=== PATIENT | female | born 1960 | race Caucasian/White ===

== ENCOUNTER 2017-10-19 16:37 | Emergency (ER) | payer OTHER, MEDICAID ==
[2017-10-19 16:46] VITALS: BP 154/71; BMI 41.5
--- NOTE | 2017-10-19 17:41 | DR.GENAD ---
HPI - PCP Primary Care Physician: SPENSER WISEMAN - Complaint/Symptoms Chief Complaint Doctors Comments: I agree with complaint as written. I addressed patients complaint to her satisfaction. Patient is having no problems with eating. She is concerned that she does not have the appetite that she had prior to the surgery. Is what she is consuming enough; primarily water. Chief Complaint:: PT C/O HAVING MAJOR SURGERY ON FRIDAY IN [place] IN [place] , PETTY DEBORAH AND CORAL, PT STATES SHE HAD A BLADDER SLING, GASTRIC BYPASS AND HYS, HERNIA REPAIR.. Self Treatment fo Chief Complaint: PT C/O EATING AND THE FOOD NOT GOING DOWN SHE C/O NAUSEA AND WEAKNESS AND SHE THINKS SHE LIKE SHE IS DEHYDRATED .... PT HAS FC IN PLACE AND SHE STATES I HAVE NOT HAD A LOT OF URINE OUT. - Source History Provided: Patient - Mode of Arrival Mode of Arrival: Wheelchair - Timing Onset of Chief Complaint: 10/19/17 PMH - PMH Past Medical History: Yes Past Medical History: Diabetes, Dyslipidemia, Hypertension Past Surgical History: Yes Surgical History: Hysterectomy Past Surgical History Comment: HERNIA REPAIR. BLADDER SLING, GASTRIC BYPASS - Family History History of Family Medical Conditions: No - Social History Does patient currently use any type of tobacco product: No Have you used tobacco products in the last 12 months: No Type of Tobacco Use: None Does any household member use tobacco: No Alcohol Use: None Do you use any recreational Drugs:: No Lives With: Family Lives Where: Home - infectious screening In the last 2 months have you had wt loss of >10#?: YES Have you had fever, night sweats or hemotysis?: No Have you traveled outside the country in the last 6 months?: No Isolation: Standard ROS - Review of Systems Constitutional: No Symptoms Reported Eyes: No Symptoms Reported ENTM: No Symptoms Reported Respiratoy: No Symptoms Reported Cardiovascular: No Symptoms Reported Gastrointestinal/Abdominal: No Symptoms Reported Genitourinary: No Symptoms Reported Neurological: No Symptoms Reported Musculoskeletal: No Symptoms Reported Integumentary: No Symptoms Reported Hematologic/Lymphatic: No Symptoms Reported Endocrine: No Symptoms Reported Psychiatric: No Symptoms Reported All Other Systems: Reviewed and Negative PE - Vital Signs Vitals: Temperature 96.9 F Pulse Rate 63 Respiratory Rate 22 Blood Pressure 154/71 O2 Sat by Pulse Oximetry 94 - General Limitations: No Limitations General Appearance: Alert, In No Apparent Distress - Head Head Exam: Normal Inspection, Atraumatic - Eyes Eye exam: Normal Appearance, PERRL, EOMI - ENT ENT Exam: Normal Exam, Normal Oropharynx. negative: Mucous Membranes Dry External Ear Exam: Normal External Inspection TM/Canal Exam: Bilateral Normal Nose Exam: Normal Nose Exam Mouth Exam: Normal Inspection Throat Exam: Normal Inspection - Neck Neck Exam: Normal Inspection - Chest Chest Inspection: Normal Inspection - Respiratory Respiratory Exam: Normal Lung Sounds Bilat Respiratory Exam: Bilateral Clear to Auscultation - Cardiovascular Cardiovascular Exam: Regular Rate, Normal Rhythm - Abdominal Exam Abdominal Exam: Normal Inspection Abdominal Tenderness: negative: RUQ, RLQ, LUQ, LLQ, Epigastrium, Suprapubic, Diffuse, Mild, Moderate, Severe, Other - Extremities Extremities Exam: Normal Inspection, Normal Capillary Refill - Back Back Exam: Normal Inspection, Full ROM - Neurologic Neurological Exam: Alert, Oriented X3, CN II-XII Intact - Psychiatric Psychiatric Exam: Normal Affect - Skin Skin Exam: Dry - Diagnosis Discharge Problem: well hydrated - Discharge Plan Condition: Stable - Follow ups/Referrals Follow ups/Referrals: NFD,None [Primary Care Provider] - 3 days - Instructions
== END 2017-10-19 17:51 | disposition home or self-care (01) ==
LOC: ER 17:03
DX: R11.0 Nausea (principal); R53.1 Weakness
CPT/HCPCS: 99281; 99282

== ENCOUNTER 2020-12-11 13:44 | Inpatient (IN) ==
[2020-12-11 13:52] VITALS: BMI 34.2
--- NOTE | 2020-12-11 14:34 | DR.SOBA ---
HPI Time Seen Time Seen by Provider: 12/11/20 14:26 Primary Care Physician Primary Care Physician: KYLIE HPI Comment HPI Comment: PATIENT COMPLAINS OF A DRY COUGH, AND DYSPNEA AFTER EXPOSURE TO RELATIVE POSITIVE FOR COVID, DURATION OF 2 WEEKS.. DENIES FEVER, CHILLS OR ARTHRALGIAS. Complaints Chief Complaint Doctors Comments: ONSET OF SHORTNESS OF BREATH AND DRY COUGH, EXPOSED TO RELATIVE POSITIVE FOR COVID Chief Complaint:: SHORT OF BREATHE, MY COUSIN CAME IN YESTERDAY WITH COVID POSITIVE. I HAVE BEEN HAVING A DRY HACKING COUGH AND THINK IT IS SINUS PROBLEMS. SPOKE WITH SOMEONE AT THE HOSPITAL AND THEY TOLD ME TO COME AND BE SEEN. HAVE NOT TRIED TO GO TO OFFICE Self Treatment fo Chief Complaint: COUGHING STARTED TWO WEEKS AGO AND SHORT OF BREATHE STARTED THIS WEEK COVID-19 Coronavirus risk:travel/contact w/high risk person: Yes Has patient experienced Coronavirus symptoms: No Coronavirus symptoms experienced: Fever Reviewed Nurses Notes Reviewed: Yes Source History Provided: Patient Mode of Arrival Mode of Arrival: Ambulatory Timing Onset of Chief Complaint: 11/26/20 If Cough Cough: Nonproductive Other History Other History: HISTORY OF CONGESTIVE HEART FAILURE, HYPERTENSION, DM, PMH PMH Past Medical History: Yes Past Medical History: Diabetes and Hypertension Past Surgical History: Yes Surgical History: Cholecystectomy, Hysterectomy and Other Past Surgical History Comment: GASTRIC BYPASS HERNIA Family History History of Family Medical Conditions: No (PT WAS ADOPTIVE) Social History Does any household member use tobacco: No Alcohol Use: None Do you use any recreational Drugs:: No Lives With: Family Infectious screening In the last 2 months have you had wt loss of >10#?: NO Have you had fever, night sweats or hemotysis?: No Have you traveled outside the country in the last 6 months?: No Isolation: Droplet ROS Review of Systems Constitutional: No Symptoms Reported and See HPI Eyes: No Symptoms Reported ENTM: No Symptoms Reported Respiratoy: See HPI and Short of Breath Cardiovascular: No Symptoms Reported Gastrointestinal/Abdominal: No Symptoms Reported Genitourinary: No Symptoms Reported Neurological: No Symptoms Reported Musculoskeletal: No Symptoms Reported Integumentary: No Symptoms Reported Hematologic/Lymphatic: No Symptoms Reported Endocrine: No Symptoms Reported Psychiatric: No Symptoms Reported All Other Systems: Reviewed and Negative PE Vital Signs Vitals: Temperature 97.5 F Pulse Rate 64 Respiratory Rate 24 Blood Pressure 187/75 O2 Sat by Pulse Oximetry 93 General Limitations: No Limitations General Appearance: Alert and In No Apparent Distress Head Head Exam: Normal Inspection and Atraumatic Eyes Eye exam: Normal Appearance, PERRL and EOMI ENT ENT Exam: Normal Exam and Normal Oropharynx Neck Neck Exam: Normal Inspection, Full ROM and Trachea Midline Chest Chest Inspection: Normal Inspection and Symmetric Chest Wall Rise Respiratory Respiratory Exam: Normal Lung Sounds Bilat Respiratory Exam: Bilateral: Clear to Auscultation Cardiovascular Cardiovascular Exam: Regular Rate and Normal Rhythm Abdominal Exam Abdominal Exam: Normal Inspection, Normal Bowel Sounds and Soft Extremities Extremities Exam: Normal Inspection and Full ROM Back Back Exam: Normal Inspection Neurologic Neurological Exam: Alert and Oriented X3 Psychiatric Psychiatric Exam: Normal Affect and Normal Mood Skin Skin Exam: Warm, Dry, Intact and Normal Color MDM Differential Diagnosis Differential Diagnosis: COPD, Pneumonia and Pulmonary embolism Differential Diagnosis Comment:: COVID PNEUMONIA COURSE Treatment Treatment: IV NS AT 50ML/HR, AFTER 2 SETS BLOOD CULTURES, ROCEPHIN 1 GM IVPB, SOLUMEDROL 125MG IV Reevaluation 1st: Unchanged Consultation Call Returned: 18:33 Consultation Comments: DISCUSSED WITH DR COHEN AT 1833, FOR ADMIT ROR Labs Reviewed Laboratory Results Reviewed?: Yes Result Diagrams: 12/11/20 14:57 12/11/20 16:41 Laboratory: WBC 6.7 X10^3/uL (3.6-10.0) 12/11/20 14:57 RBC 3.73 X10^6/uL (3.5-5.4) 12/11/20 14:57 Hgb 9.3 g/dL (12.0-16.0) L 12/11/20 14:57 Hct 29.3 % (36.0-47.0) L 12/11/20 14:57 MCV 78.5 fL (80.0-100.0) L 12/11/20 14:57 MCH 24.9 pg (27.0-34.0) L 12/11/20 14:57 MCHC 31.7 g/dL (33.0-35.0) L 12/11/20 14:57 RDW 15.9 % (11.6-16.5) 12/11/20 14:57 Plt Count 412 X10^3/uL (150.0-450.0) 12/11/20 14:57 Plt Count Comment Adequate (ADEQUATE) 12/11/20 14:57 MPV 7.4 fL (7.4-11.0) 12/11/20 14:57 Neut % (Auto) 71.6 % (42.0-75.0) 12/11/20 14:57 Lymph % (Auto) 19.9 % (21.0-51.0) L 12/11/20 14:57 [place] % (Auto) 5.9 % (0.0-13.0) 12/11/20 14:57 Eos % (Auto) 2.0 % (0.9-2.9) 12/11/20 14:57 Baso % (Auto) 0.6 % (0.2-1.0) 12/11/20 14:57 Neut # (Auto) 4.8 x10^3/uL (2.2-4.8) 12/11/20 14:57 Lymph # (Auto) 1.3 X10^3/uL (1.3-2.9) 12/11/20 14:57 [place] # (Auto) 0.4 x10^3/uL (0.3-0.8) 12/11/20 14:57 Eos # (Auto) 0.1 x10^3/uL (0.0-0.2) 12/11/20 14:57 Baso # (Auto) 0.0 X10^3/uL (0.0-0.1) 12/11/20 14:57 Absolute Nucleated RBC 0.0 /100WBC 12/11/20 14:57 Total Counted 100 12/11/20 14:57 Neutrophils % (Manual) 72 % (39-76) 12/11/20 14:57 Band Neutrophils % 2 % (0-10) 12/11/20 14:57 Lymphocytes % (Manual) 25 % (13-43) 12/11/20 14:57 Monocytes % (Manual) 1 % (4-9) L 12/11/20 14:57 Plt Morphology Comment Normal (NORMAL) 12/11/20 14:57 RBC Morphology Abnormal (NORMAL) A 12/11/20 14:57 Hypochromasia Slight A 12/11/20 14:57 Microcytosis Slight A 12/11/20 14:57 D-Dimer 1.28 ug/ml (0.0-0.57) H* 12/11/20 14:57 Sodium 144 mmol/L (136-145) 12/11/20 16:41 Corrected Sodium 145 mmol/L (136-145) 12/11/20 16:41 Potassium 4.8 mmol/L (3.5-5.1) 12/11/20 16:41 Chloride 110 mmol/L (98-107) H 12/11/20 16:41 Carbon Dioxide 24.3 mmol/L (21-32) 12/11/20 16:41 BUN 15 mg/dL (7-18) 12/11/20 16:41 Creatinine 0.95 mg/dL (0.55-1.02) 12/11/20 16:41 Est GFR (MDRD) Af Amer > 60 (>60) 12/11/20 16:41 Est GFR (MDRD) Non-Af > 60 (>60) 12/11/20 16:41 Glucose 128 mg/dL (65-99) H 12/11/20 16:41 Calcium 7.7 mg/dL (8.5-10.1) L 12/11/20 16:41 Corrected Calcium 9.7 mg/dL (8.5-10.1) 12/11/20 14:57 Ferritin 100 ng/mL (8-252) 12/11/20 14:57 Total Bilirubin 1.00 mg/dL (0.2-1.0) 12/11/20 14:57 AST 44 Units/L (15-37) H 12/11/20 14:57 ALT 23 Units/L (12-78) 12/11/20 14:57 Alkaline Phosphatase 133 Units/L (46-116) H 12/11/20 14:57 Troponin I < 0.02 ng/mL (0-1.5) 12/11/20 14:57 C-Reactive Protein 18.40 mg/L (0-3.0) H 12/11/20 14:57 Total Protein 7.7 g/dL (6.4-8.2) 12/11/20 14:57 Albumin 2.8 g/dL (3.4-5.0) L 12/11/20 14:57 Globulin 4.9 g/dL (2.5-4.5) H 12/11/20 14:57 Albumin/Globulin Ratio 0.6 Ratio (1.1-2.1) L 12/11/20 14:57 SARS-CoV-2 (PCR) Positive (NEGATIVE) A 12/11/20 15:10 Influenza Type A (PCR) Negative (NEGATIVE) 12/11/20 15:10 Influenza Type B (PCR) Negative (NEGATIVE) 12/11/20 15:10 RSV (PCR) Negative (NEGATIVE) 12/11/20 15:10 XRAY XRAY Interpreted by: Radiologist (CTA CHEST INTRAVENOUS CONTRAST NO EVIDENCE PULM EMBOLISM, FOCAL CONSOLIDATION PERIPHERAL RIGHT UPPER LOBE, GROUND GLASS PERIPHERAL INFILTRATES LOWER LOBE) X-ray Results: PORTABLE CHEST XRAY C/W LEFT PERIHILAR SUBSEGMENTAL INFILTRATE, RIGHT SIDED PERIHILAR UPPER LOBE EKG Rate: 64 [place]: Normal Hypertrophy: LVH ST: Nonsp Opioid Opioid Risk Tool Age (Jluis box if 16-45): No History of Preadolescent Sexual Abuse: No Total: 0 Total Score Risk Category: Low Risk Copyright: Shyam CABRAL predicting aberrant behaviors Diagnosis Discharge Problem: Pneumonia due to COVID-19 virus
[2020-12-11] MEDS ORDERED: ROCEPHIN 1 GRAM IV PREMIX 1 G/50 ML IV.SOLN. IV ONE ×3 (14:39→20:49)
[2020-12-11] MEDS ORDERED: NS 1000 ML 1,000 ML ONE (14:42)
[2020-12-11] MEDS ORDERED: NS 1000 ML 1,000 ML IV SCH ×2 (15:00→21:00)
--- NOTE | 2020-12-11 15:04 | RAD ---
HISTORYCough, COVID-19 exposureSTUDYChest AP portableCOMPARISONNoneFINDINGSThe heart is enlarged. No definite congestive heart failure is noted. The lungs are well inflated. There is right upper lobe perihilar infiltrate present. This should be followed until complete resolution in order to exclude underlying neoplasm. If this does not resolve with antibiotic therapy or the patient does not have pneumonia clinically at this time than chest CT WITH CONTRAST should be obtained to exclude underlying parenchymal or right hilar neoplasm. There is some perihilar subsegmental atelectasis on the left. No pleural effusions are identified. Bony thorax is unremarkable.IMPRESSIONRight-sided perihilar upper lobe infiltrate which should be followed until complete resolution. See recommendation as abovePerihilar subsegmental atelectasis on the leftCardiomegaly without congestive heart failureElectronically signed by: SALEEM BEYER (Dec 11, 2020 15:02:05)
[2020-12-11 15:27] LABS: HEMOGLOBIN 9.3 g/dL (12.0-16.0); MEAN PLATELET VOLUME 7.4 fL (7.4-11.0)
[2020-12-11 15:28] LABS: EOSINOPHILS # (AUTO) 0.1 x10^3/uL (0.0-0.2); LYMPHOCYTES # (AUTO) 1.3 X10^3/uL (1.3-2.9); MONOCYTES # (AUTO) 0.4 x10^3/uL (0.3-0.8); NEUTROPHILS # (AUTO) 4.8 x10^3/uL (2.2-4.8)
[2020-12-11 15:37] LABS: BASOPHILS % (AUTO) 0.6 % (0.2-1.0); HEMATOCRIT 29.3 % (36.0-47.0); LYMPHOCYTES % (AUTO) 19.9 % (21.0-51.0); MEAN CORPUSCULAR HEMOGLOBIN 24.9 pg (27.0-34.0); MEAN CORPUSCULAR HGB CONC 31.7 g/dL (33.0-35.0); MEAN CORPUSCULAR VOLUME 78.5 fL (80.0-100.0); MONOCYTES % (AUTO) 5.9 % (0.0-13.0); NEUTROPHILS % (AUTO) 71.6 % (42.0-75.0); PLATELET COUNT 412 X10^3/uL (150.0-450.0); RED BLOOD COUNT 3.73 X10^6/uL (3.5-5.4); RED CELL DISTRIBUTION WIDTH 15.9 % (11.6-16.5); WHITE BLOOD COUNT 6.7 X10^3/uL (3.6-10.0)
[2020-12-11 15:42] LABS: ALANINE AMINOTRANSFERASE 23 Units/L (12-78); ALBUMIN 2.8 g/dL (3.4-5.0); ALKALINE PHOSPHATASE 133 Units/L (46-116); ASPARTATE AMINO TRANSFERASE 44 Units/L (15-37); BLOOD UREA NITROGEN 17 mg/dL (7-18); CALCIUM 8.7 mg/dL (8.5-10.1); CARBON DIOXIDE 24.6 mmol/L (21-32); CHLORIDE 107 mmol/L (98-107); COR CA(FOR HYPOALB) 9.7 mg/dL (8.5-10.1); COR NA(FOR HYPERGLY) 143 mmol/L (136-145); CREATININE 0.99 mg/dL (0.55-1.02); SODIUM 142 mmol/L (136-145); TOTAL PROTEIN 7.7 g/dL (6.4-8.2); TROPONIN I < 0.02 ng/mL (0-1.5); eGFR NON BLACK RACES > 60 (>60)
[2020-12-11] MEDS ORDERED: LEVSIN/MAALOX/LIDOC VISC PO ONE (15:43)
[2020-12-11] MEDS ORDERED: PROTONIX INJ 40 MG VIAL IVP ONE (15:43)
[2020-12-11 16:12] LABS: BAND NEUTROPHILS % 2 % (0-10)
[2020-12-11 16:13] LABS: HYPOCHROMASIA SLIGHT; MICROCYTOSIS SLIGHT; PLATELET MORPHOLOGY COMMENT NORMAL (NORMAL)
[2020-12-11] MEDS ORDERED: LEVSIN/MAALOX/LIDOC VISC ONE (16:38)
[2020-12-11] MEDS ORDERED: SOLU-Medrol 125 MG VIAL IVP ONE (16:38)
[2020-12-11] MEDS ORDERED: PROTONIX INJ 40 MG VIAL ONE (16:38)
[2020-12-11 16:59] LABS: BLOOD UREA NITROGEN 15 mg/dL (7-18); CALCIUM 7.7 mg/dL (8.5-10.1); CARBON DIOXIDE 24.3 mmol/L (21-32); CHLORIDE 110 mmol/L (98-107); COR NA(FOR HYPERGLY) 145 mmol/L (136-145); CREATININE 0.95 mg/dL (0.55-1.02); SODIUM 144 mmol/L (136-145); eGFR NON BLACK RACES > 60 (>60)
[2020-12-11] MEDS ORDERED: SOLU-Medrol 125 MG VIAL ONE ×2 (17:02→20:49)
--- NOTE | 2020-12-11 17:23 | CT ---
CT angiogram chest with contrastIndication: Cough. History COVID-19 exposureTECHNIQUEHelical images through the chest after IV contrast. Coronal and sagittal reformats provided. MIP images provided.COMPARISONNo recent prior cross-sectional imaging. Shoulder radiograph in October 14 reviewedFINDINGSLimited images through the upper abdomen demonstrate postsurgical change in the stomach. Trace perihepatic ascites noted review of bone windows demonstrate no destructive osseous lesion. Comminuted left shoulder fracture noted, intra-articular, involving the articular surface of the humerus, and extending into the humeral neck. This is subacute, with callus formation noted.Chest: Aortic arch and branch vessels show few calcifications. Heart size enlarged. There is mitral valve calcifications and scattered coronary artery calcifications. Pulmonary artery bolus timing is slightly suboptimal with motion artifact limiting sensitivity. Within these limitations, there is no large central or segmental pulmonary artery filling defect identified.There is no pneumothorax. There is mosaic attenuation with increased interstitial markings and more focal appearing consolidation in the right upper lobe posteriorly abutting the minor fissure on axial images 72-82. A few peripheral ground-glass opacities in the right lower lung and left lower lobes are noted, with interlobular septal thickening noted as well.Bilateral small to moderate effusions seen, largest on the right.IMPRESSION1. No large central pulmonary embolus, with motion artifact and bolus timing limiting distal vessel sensitivity somewhat.2. Cardiomegaly, bilateral effusions and increased interstitial markings, concerning for cardiac dysfunction/CHF. Correlate clinically.3. More focal consolidation in the periphery of the right upper lobe could reflect bacterial pneumonia.4. More patchy ground-glass opacities in the periphery of the lower lobes are nonspecific, but viral pneumonitis from COVID-19 infection is not excluded.Electronically signed by: JONATHAN CAMPBELL (Dec 11, 2020 17:22:12)
[2020-12-11] MEDS ORDERED: ZOFRAN INJ 4 MG VIAL IVP PRN (20:18)
[2020-12-11] MEDS ORDERED: ZITHROMAX INJ 500 MG VIAL 500 MG in NS 250 ML IV 250 ML IV SCH (20:18)
[2020-12-11] MEDS ORDERED: TYLENOL 325 MG TAB PO PRN (20:18)
[2020-12-11] MEDS: ROCEPHIN 1 GRAM IV PREMIX 1 G/50 ML IV.SOLN. IV SCH ×2 (20:55→20:56)
[2020-12-11] MEDS: SOLU-Medrol 125 MG VIAL IVP SCH (21:02)
[2020-12-11] MEDS ORDERED: ZITHROMAX INJ 500 MG VIAL IV ONE (21:11)
[2020-12-11] MEDS ORDERED: NS 250 ML IV 250 ML IV ONE (21:11)
[2020-12-11] MEDS ORDERED: ROCEPHIN 1 GRAM IV PREMIX 1 G/50 ML IV.SOLN. IV SCH (22:00)
[2020-12-11] MEDS ORDERED: APRESOLINE INJ 20 MG VIAL IVP ONE (23:15)
[2020-12-12] MEDS: SOLU-Medrol 125 MG VIAL IVP SCH ×3 (05:46→21:01)
[2020-12-12] MEDS ORDERED: REMDESIVIR 200 MG in NS 250 ML IV 250 ML IV NR (07:51)
[2020-12-12] MEDS ORDERED: ULTRAM PO PRN (07:53)
[2020-12-12] MEDS ORDERED: ZESTRIL TAB 5 MG PO SCH (09:00)
[2020-12-12] MEDS ORDERED: PROTONIX TAB 40 MG PO ONE (09:27)
[2020-12-12] MEDS ORDERED: VITAMIN D3 125 mcg (5,000 UNITS) ONE (09:28)
[2020-12-12] MEDS ORDERED: VITAMIN C ONE (09:28)
[2020-12-12] MEDS ORDERED: ZESTRIL TAB 5 MG ONE (09:28)
[2020-12-12] MEDS ORDERED: LOVENOX INJ 30 MG SYR SC ONE (09:28)
[2020-12-12] MEDS ORDERED: LASIX ONE (09:28)
[2020-12-12] MEDS ORDERED: NS 250 ML IV 250 ML IV ONE (09:28)
[2020-12-12] MEDS ORDERED: NEURONTIN TAB 600 MG ONE (09:28)
[2020-12-12] MEDS ORDERED: REMDESIVIR IV ONE (09:28)
[2020-12-12] MEDS: NEURONTIN TAB 600 MG PO SCH ×3 (09:30→21:01)
[2020-12-12] MEDS: PROTONIX TAB 40 MG PO SCH (09:31)
[2020-12-12] MEDS: LOVENOX INJ 30 MG SYR SC SCH ×2 (09:31→20:22)
[2020-12-12] MEDS: VITAMIN D3 125 mcg (5,000 UNITS) PO SCH (09:31)
[2020-12-12] MEDS: LASIX PO SCH (09:31)
[2020-12-12] MEDS: VITAMIN C PO SCH (09:31)
[2020-12-12] MEDS: DUONEB 0.5 MG/3 MG (3 mL) NEB SCH ×4 (09:51→20:15)
--- NOTE | 2020-12-12 10:37 | DR.H&P ---
H&P History & Physical for Day of: H&P Date: 12/12/20 Chief Complaint Chief Complaint: cough, dyspnea Allergies Allergies Allergy/AdvReac Type Severity Reaction Status Date / Time No Known Drug Allergies Allergy Verified 12/11/20 13:52 History of Present Illness History of Present Illness: Ms. Diaz is a 60 y/o female with a PMH of Type 2 DM, HTN, HLD, chronic back pain presented with worsening dyspnea and cough. She states she has been gradually worsening for the past week. She states yesterday she felt like her breathing was worse so she came to the ED. She reports feeling tired. Denies GI Sx. Her appetite has been normal. Her family member who lives a few houses away from her was recently diagnosed with COVID and she had been exposed. Denies fever or chills. She is currently on 2L NC with sats > 95%. She reports worsening dyspnea on exertion. Labs: WBC 6.7 Hgb 9.3 D-dimer elevated. Troponin (-). Elevated CRP COVID-19 positive, Flu and RSV negative CTA: negative for PE, bilateral pleural effusions concerning for CHF, ground glass opacities suggestive of COVID-19 pneumonia Patient was started on IV Rocephin/Azithromycin and solumedrol. Plan: Will start Remdesivir. Continue IV Rocephin/Azithromycin. Continue Solumedrol. Continue duonebs prn. Will get an ECHO to evaluate LV function. DC IVF. Follow cultures. Wean O2 as tolerated. Start vitamin support. Lovenox BID for DVT ppx. Resume home medications. Monitor AM labs/imaging. Past Medical History Past Medical History: CHF, Diabetes, Dyslipidemia and Hypertension Past Surgical History Surgical History: Cholecystectomy and Hysterectomy Social History Does patient currently use any type of tobacco product: No Have you used tobacco products in the last 12 months: No Type of Tobacco Use: None Does any household member use tobacco: No Alcohol Use: None Drug Use: None Prescription drug monitoring program results: PDMP reviewed and no concerns identified Medications Home Medications: No Known Drug Allergies Allergy (Verified 12/11/20 13:52) CONTINUE taking the following medications gabapentin mg PO 12/11/20 [History] lisinopril 5 mg PO DAILY 12/11/20 [History] Labs Result Diagrams: 12/11/20 14:57 12/11/20 16:41 Labs: Laboratory WBC 6.7 X10^3/uL (3.6-10.0) 12/11/20 14:57 RBC 3.73 X10^6/uL (3.5-5.4) 12/11/20 14:57 Hgb 9.3 g/dL (12.0-16.0) L 12/11/20 14:57 Hct 29.3 % (36.0-47.0) L 12/11/20 14:57 MCV 78.5 fL (80.0-100.0) L 12/11/20 14:57 MCH 24.9 pg (27.0-34.0) L 12/11/20 14:57 MCHC 31.7 g/dL (33.0-35.0) L 12/11/20 14:57 RDW 15.9 % (11.6-16.5) 12/11/20 14:57 Plt Count 412 X10^3/uL (150.0-450.0) 12/11/20 14:57 Plt Count Comment Adequate (ADEQUATE) 12/11/20 14:57 MPV 7.4 fL (7.4-11.0) 12/11/20 14:57 Neut % (Auto) 71.6 % (42.0-75.0) 12/11/20 14:57 Lymph % (Auto) 19.9 % (21.0-51.0) L 12/11/20 14:57 [place] % (Auto) 5.9 % (0.0-13.0) 12/11/20 14:57 Eos % (Auto) 2.0 % (0.9-2.9) 12/11/20 14:57 Baso % (Auto) 0.6 % (0.2-1.0) 12/11/20 14:57 Neut # (Auto) 4.8 x10^3/uL (2.2-4.8) 12/11/20 14:57 Lymph # (Auto) 1.3 X10^3/uL (1.3-2.9) 12/11/20 14:57 [place] # (Auto) 0.4 x10^3/uL (0.3-0.8) 12/11/20 14:57 Eos # (Auto) 0.1 x10^3/uL (0.0-0.2) 12/11/20 14:57 Baso # (Auto) 0.0 X10^3/uL (0.0-0.1) 12/11/20 14:57 Absolute Nucleated RBC 0.0 /100WBC 12/11/20 14:57 Total Counted 100 12/11/20 14:57 Neutrophils % (Manual) 72 % (39-76) 12/11/20 14:57 Band Neutrophils % 2 % (0-10) 12/11/20 14:57 Lymphocytes % (Manual) 25 % (13-43) 12/11/20 14:57 Monocytes % (Manual) 1 % (4-9) L 12/11/20 14:57 Plt Morphology Comment Normal (NORMAL) 12/11/20 14:57 RBC Morphology Abnormal (NORMAL) A 12/11/20 14:57 Hypochromasia Slight A 12/11/20 14:57 Microcytosis Slight A 12/11/20 14:57 D-Dimer 1.28 ug/ml (0.0-0.57) H* 12/11/20 14:57 Sodium 144 mmol/L (136-145) 12/11/20 16:41 Corrected Sodium 145 mmol/L (136-145) 12/11/20 16:41 Potassium 4.8 mmol/L (3.5-5.1) 12/11/20 16:41 Chloride 110 mmol/L (98-107) H 12/11/20 16:41 Carbon Dioxide 24.3 mmol/L (21-32) 12/11/20 16:41 BUN 15 mg/dL (7-18) 12/11/20 16:41 Creatinine 0.95 mg/dL (0.55-1.02) 12/11/20 16:41 Est GFR (MDRD) Af Amer > 60 (>60) 12/11/20 16:41 Est GFR (MDRD) Non-Af > 60 (>60) 12/11/20 16:41 Glucose 128 mg/dL (65-99) H 12/11/20 16:41 Calcium 7.7 mg/dL (8.5-10.1) L 12/11/20 16:41 Corrected Calcium 9.7 mg/dL (8.5-10.1) 12/11/20 14:57 Ferritin 100 ng/mL (8-252) 12/11/20 14:57 Total Bilirubin 1.00 mg/dL (0.2-1.0) 12/11/20 14:57 AST 44 Units/L (15-37) H 12/11/20 14:57 ALT 23 Units/L (12-78) 12/11/20 14:57 Alkaline Phosphatase 133 Units/L (46-116) H 12/11/20 14:57 Troponin I < 0.02 ng/mL (0-1.5) 12/11/20 14:57 C-Reactive Protein 18.40 mg/L (0-3.0) H 12/11/20 14:57 Total Protein 7.7 g/dL (6.4-8.2) 12/11/20 14:57 Albumin 2.8 g/dL (3.4-5.0) L 12/11/20 14:57 Globulin 4.9 g/dL (2.5-4.5) H 12/11/20 14:57 Albumin/Globulin Ratio 0.6 Ratio (1.1-2.1) L 12/11/20 14:57 SARS-CoV-2 (PCR) Positive (NEGATIVE) A 12/11/20 15:10 Influenza Type A (PCR) Negative (NEGATIVE) 12/11/20 15:10 Influenza Type B (PCR) Negative (NEGATIVE) 12/11/20 15:10 RSV (PCR) Negative (NEGATIVE) 12/11/20 15:10 Review of Systems Constitutional: Weakness and Malaise Eyes: No Symptoms Reported ENT: No Symptoms Reported Respiratory: Cough, Shortness of Breath and SOB with Excertion Cardiovascular: No Symptoms Reported Gastrointestinal: No Symptoms Reported Genitourinary: No Symptoms Reported Musculoskeletal: Back Pain Skin: No Symptoms Reported Neurological: No Symptoms Reported Physical Exam Vital Signs: Temperature 98 F Pulse Rate 63 Respiratory Rate 22 Blood Pressure 172/80 O2 Sat by Pulse Oximetry 96 Oriented: Normal Eyes: Normal Ear: Normal Nose: Normal Throat: Normal Respiratory: Diminished Throughout Cardiovascular: Normal Auscultation: Bowel Sounds: Normal Palpation: Normal Tenderness: Normal Skin: Normal Musculoskeletal: Normal Psychiatric: Normal Mood Description: Calm and Appropriate Affect: Normal Speech Pattern: Clear and Appropriate Assessment/Plan (1) Acute respiratory failure with hypoxia: Status: Acute (2) Pneumonia due to COVID-19 virus: Status: Acute (3) Bilateral pleural effusion: Status: Acute (4) HTN (hypertension): Qualifiers: Hypertension type: essential hypertension Qualified Code(s): I10 - Essential (primary) hypertension Status: Acute (5) DDD (degenerative disc disease): Qualifiers: Spinal region: lumbosacral Qualified Code(s): M51.37 - Other intervertebral disc degeneration, lumbosacral region Status: Acute (6) Diabetes: Qualifiers: Diabetes mellitus type: type 2 Diabetes mellitus intermediate designer insulin use: without intermediate designer use Diabetes mellitus complication status: with hyperglycemia Qualified Code(s): E11.65 - Type 2 diabetes mellitus with hyperglycemia Status: Acute (7) Hyperkalemia: Status: Acute Review H&P Reviewed: Yes Patient was examined?: Yes
[2020-12-12] MEDS: ROCEPHIN 1 GRAM IV PREMIX 1 G/50 ML IV.SOLN. IV SCH (14:50)
[2020-12-12] MEDS: GLUCOTROL PO SCH ×2 (17:13→17:16)
[2020-12-12] MEDS: HumuLIN R SC PRN ×2 (17:16→20:44)
[2020-12-12] MEDS ORDERED: NS 1000 ML 1,000 ML ONE (20:08)
[2020-12-12] MEDS: SNACK - Diabetic Appropriate PO SCH (20:21)
[2020-12-12] MEDS: EFFEXOR XR 150 MG CAP 24-HR PO SCH (20:23)
[2020-12-12] MEDS: ZITHROMAX INJ 500 MG VIAL 250 MG in NS 250 ML IV 250 ML IV SCH (20:24)
[2020-12-12] MEDS: ZOCOR TAB 10 MG PO SCH (20:24)
[2020-12-12] MEDS ORDERED: ZITHROMAX INJ 500 MG VIAL 500 MG in NS 250 ML IV 250 ML IV SCH (21:00)
[2020-12-13 05:27] LABS: BASOPHILS % (AUTO) 0.2 % (0.2-1.0); HEMATOCRIT 26.5 % (36.0-47.0); HEMOGLOBIN 8.4 g/dL (12.0-16.0); LYMPHOCYTES # (AUTO) 0.8 X10^3/uL (1.3-2.9); LYMPHOCYTES % (AUTO) 6.1 % (21.0-51.0); MEAN CORPUSCULAR HGB CONC 31.6 g/dL (33.0-35.0); MEAN PLATELET VOLUME 7.4 fL (7.4-11.0); MONOCYTES # (AUTO) 0.4 x10^3/uL (0.3-0.8); MONOCYTES % (AUTO) 3.5 % (0.0-13.0); NEUTROPHILS # (AUTO) 11.5 x10^3/uL (2.2-4.8); NEUTROPHILS % (AUTO) 90.2 % (42.0-75.0); PLATELET COUNT 420 X10^3/uL (150.0-450.0); RED BLOOD COUNT 3.35 X10^6/uL (3.5-5.4); RED CELL DISTRIBUTION WIDTH 15.8 % (11.6-16.5); WHITE BLOOD COUNT 12.7 X10^3/uL (3.6-10.0)
[2020-12-13 05:45] LABS: ALANINE AMINOTRANSFERASE 20 Units/L (12-78); ALBUMIN 2.5 g/dL (3.4-5.0); ALKALINE PHOSPHATASE 109 Units/L (46-116); ASPARTATE AMINO TRANSFERASE 7 Units/L (15-37); BLOOD UREA NITROGEN 21 mg/dL (7-18); CALCIUM 8.2 mg/dL (8.5-10.1); CARBON DIOXIDE 23.8 mmol/L (21-32); CHLORIDE 105 mmol/L (98-107); COR CA(FOR HYPOALB) 9.4 mg/dL (8.5-10.1); COR NA(FOR HYPERGLY) 142 mmol/L (136-145); CREATININE 1.09 mg/dL (0.55-1.02); SODIUM 138 mmol/L (136-145); TOTAL PROTEIN 6.5 g/dL (6.4-8.2); eGFR NON BLACK RACES 54 (>60)
[2020-12-13 05:54] LABS: ANISOCYTOSIS SLIGHT; HYPOCHROMASIA SLIGHT; MICROCYTOSIS SLIGHT; PLATELET MORPHOLOGY COMMENT NORMAL (NORMAL)
[2020-12-13] MEDS: SOLU-Medrol 125 MG VIAL IVP SCH ×3 (06:25→21:08)
[2020-12-13] MEDS: NEURONTIN TAB 600 MG PO SCH ×3 (06:25→21:06)
[2020-12-13] MEDS: GLUCOTROL PO SCH ×2 (06:25→17:04)
[2020-12-13] MEDS: HumuLIN R SC PRN ×4 (06:43→21:07)
[2020-12-13] MEDS: DUONEB 0.5 MG/3 MG (3 mL) NEB SCH ×5 (08:27→20:40)
[2020-12-13] MEDS: LOVENOX INJ 30 MG SYR SC SCH ×2 (09:04→21:06)
[2020-12-13] MEDS: KAYEXALATE SUSP PO SCH ×2 (09:04→21:08)
[2020-12-13] MEDS: PROTONIX TAB 40 MG PO SCH (09:05)
[2020-12-13] MEDS: REMDESIVIR 100 MG in NS 250 ML IV 250 ML IV SCH (09:05)
[2020-12-13] MEDS: VITAMIN D3 125 mcg (5,000 UNITS) PO SCH (09:06)
[2020-12-13] MEDS: LASIX PO SCH (09:07)
[2020-12-13] MEDS: VITAMIN C PO SCH (09:09)
[2020-12-13] MEDS: ZESTRIL TAB 5 MG PO SCH (09:09)
--- NOTE | 2020-12-13 10:43 | RAD ---
HISTORYCHF, COVID HYPOXIASTUDYCHEST x-ray, 1 VIEWCOMPARISONX-ray 12/11/2020FINDINGSProbable CHF. Bilateral lung infiltrates are unchanged. No pneumothorax or pleural effusion is seen.IMPRESSIONAppearance of the chest is unchanged.Electronically signed by: Harmeet Paulino (Dec 13, 2020 10:40:45)
--- NOTE | 2020-12-13 13:31 | PCM.PROG ---
Progress Note Progress Note for Day of Date of Exam: 12/13/20 Subjective Subjective: Patient seen at bedside, no events overnight. Patient remains on 2L nasal cannula with sats>95%. She states her breathing is better. She has been ambulating to the bedside commode and states her exertional dyspnea has improved. She has dry cough. Denies fever or chills. Her appetite is normal. Labs: WBC 12.7 Hgb 8.4 K: 5.2 BUN/Cr: /1.09 Glucose 118 CRP 6.2 ECHO: Grade 1 DD, EF 56% Plan: repeat CXR. Wean O2 as tolerated to keep sats >92%. PT/OT as tolerated. Taper solumedrol. Continue Remdesvir, Rocephin and Azithromycin. Start Kayexalate for hyperkalemia. Continue pulmonary toilet with nebs and IS. Monitor AM labs/imaging. Past Medical Family Social History Past Med/Fam/Surg Hx: No changes since H&P Allergies: Allergies No Known Drug Allergies Allergy (Verified 12/11/20 13:52) Review of Systems ROS: No change since H&P Vital Signs and I&O's Vital Signs: Temperature 98 F Pulse Rate 81 Respiratory Rate 24 Blood Pressure 180/81 O2 Sat by Pulse Oximetry 97 Intake and Output: Intake & Output 12/10/20 12/11/20 12/12/20 12/13/20 23:59 23:59 23:59 23:59 Intake Total 3164 / 3164 540 / 540 Output Total 400 / 400 Balance 2764 / 2764 540 / 540 Physical Exam Oriented: Normal Eyes: Normal Ear: Normal Nose: Normal Throat: Normal Respiratory: Generalized and Diminished Cardiovascular: Normal Auscultation: Bowel Sounds: Normal Tenderness: Normal Skin: Normal Musculoskeletal: Normal Psychiatric: Normal Mood Description: Calm and Appropriate Affect: Normal Speech Pattern: Clear and Appropriate Laboratory and Diagnostics Result Diagrams: 12/13/20 04:50 12/13/20 04:50 Labs: 12/11/20 15:03 Blood Blood Culture - Preliminary 12/11/20 14:57 Blood Blood Culture - Preliminary Laboratory WBC 12.7 X10^3/uL (3.6-10.0) H 12/13/20 04:50 RBC 3.35 X10^6/uL (3.5-5.4) L 12/13/20 04:50 Hgb 8.4 g/dL (12.0-16.0) L 12/13/20 04:50 Hct 26.5 % (36.0-47.0) L 12/13/20 04:50 MCV 79.0 fL (80.0-100.0) L 12/13/20 04:50 MCH 25.0 pg (27.0-34.0) L 12/13/20 04:50 MCHC 31.6 g/dL (33.0-35.0) L 12/13/20 04:50 RDW 15.8 % (11.6-16.5) 12/13/20 04:50 Plt Count 420 X10^3/uL (150.0-450.0) 12/13/20 04:50 Plt Count Comment Adequate (ADEQUATE) 12/13/20 04:50 MPV 7.4 fL (7.4-11.0) 12/13/20 04:50 Neut % (Auto) 90.2 % (42.0-75.0) H 12/13/20 04:50 Lymph % (Auto) 6.1 % (21.0-51.0) L 12/13/20 04:50 Ashley % (Auto) 3.5 % (0.0-13.0) 12/13/20 04:50 Eos % (Auto) 0.0 % (0.9-2.9) L 12/13/20 04:50 Baso % (Auto) 0.2 % (0.2-1.0) 12/13/20 04:50 Neut # (Auto) 11.5 x10^3/uL (2.2-4.8) H 12/13/20 04:50 Lymph # (Auto) 0.8 X10^3/uL (1.3-2.9) L 12/13/20 04:50 Ashley # (Auto) 0.4 x10^3/uL (0.3-0.8) 12/13/20 04:50 Eos # (Auto) 0.0 x10^3/uL (0.0-0.2) 12/13/20 04:50 Baso # (Auto) 0.0 X10^3/uL (0.0-0.1) 12/13/20 04:50 Absolute Nucleated RBC 0.0 /100WBC 12/13/20 04:50 Total Counted 100 12/13/20 04:50 Neutrophils % (Manual) 91 % (39-76) H 12/13/20 04:50 Band Neutrophils % 2 % (0-10) 12/11/20 14:57 Lymphocytes % (Manual) 9 % (13-43) L 12/13/20 04:50 Monocytes % (Manual) 1 % (4-9) L 12/11/20 14:57 Plt Morphology Comment Normal (NORMAL) 12/13/20 04:50 RBC Morphology Abnormal (NORMAL) A 12/13/20 04:50 Hypochromasia Slight A 12/13/20 04:50 Anisocytosis Slight A 12/13/20 04:50 Microcytosis Slight A 12/13/20 04:50 D-Dimer 1.28 ug/ml (0.0-0.57) H* 12/11/20 14:57 Sodium 138 mmol/L (136-145) 12/13/20 04:50 Corrected Sodium 142 mmol/L (136-145) 12/13/20 04:50 Potassium 5.2 mmol/L (3.5-5.1) H 12/13/20 04:50 Chloride 105 mmol/L (98-107) 12/13/20 04:50 Carbon Dioxide 23.8 mmol/L (21-32) 12/13/20 04:50 BUN 21 mg/dL (7-18) H 12/13/20 04:50 Creatinine 1.09 mg/dL (0.55-1.02) H 12/13/20 04:50 Est GFR (MDRD) Af Amer > 60 (>60) 12/13/20 04:50 Est GFR (MDRD) Non-Af 54 (>60) L 12/13/20 04:50 Glucose 274 mg/dL (65-99) H 12/13/20 04:50 POC Glucose (mg/dL) 172 mg/dL (65-99) H 12/13/20 11:47 Calcium 8.2 mg/dL (8.5-10.1) L 12/13/20 04:50 Corrected Calcium 9.4 mg/dL (8.5-10.1) 12/13/20 04:50 Ferritin 100 ng/mL (8-252) 12/11/20 14:57 Total Bilirubin 0.30 mg/dL (0.2-1.0) 12/13/20 04:50 AST 7 Units/L (15-37) L 12/13/20 04:50 ALT 20 Units/L (12-78) 12/13/20 04:50 Alkaline Phosphatase 109 Units/L (46-116) 12/13/20 04:50 Troponin I < 0.02 ng/mL (0-1.5) 12/11/20 14:57 C-Reactive Protein 6.20 mg/L (0-3.0) H 12/13/20 04:50 Total Protein 6.5 g/dL (6.4-8.2) 12/13/20 04:50 Albumin 2.5 g/dL (3.4-5.0) L 12/13/20 04:50 Globulin 4.0 g/dL (2.5-4.5) 12/13/20 04:50 Albumin/Globulin Ratio 0.6 Ratio (1.1-2.1) L 12/13/20 04:50 SARS-CoV-2 (PCR) Positive (NEGATIVE) A 12/11/20 15:10 Influenza Type A (PCR) Negative (NEGATIVE) 12/11/20 15:10 Influenza Type B (PCR) Negative (NEGATIVE) 12/11/20 15:10 RSV (PCR) Negative (NEGATIVE) 12/11/20 15:10 Plan (1) Acute respiratory failure with hypoxia: Status: Acute (2) Pneumonia due to COVID-19 virus: Status: Acute (3) Bilateral pleural effusion: Status: Acute (4) HTN (hypertension): Status: Acute Qualifiers: Hypertension type: essential hypertension Qualified Code(s): I10 - Essential (primary) hypertension (5) DDD (degenerative disc disease): Status: Acute Qualifiers: Spinal region: lumbosacral Qualified Code(s): M51.37 - Other intervertebral disc degeneration, lumbosacral region (6) Diabetes: Status: Acute Qualifiers: Diabetes mellitus complication status: with hyperglycemia Diabetes mellitus [facility] insulin use: without [facility] use Diabetes mellitus type: type 2 Qualified Code(s): E11.65 - Type 2 diabetes mellitus with hyperglycemia (7) Hyperkalemia: Status: Acute
[2020-12-13] MEDS: ROCEPHIN 1 GRAM IV PREMIX 1 G/50 ML IV.SOLN. IV SCH (14:47)
[2020-12-13 16:21] LABS: IRON 25 ug/dL (50-175)
[2020-12-13] MEDS: SNACK - Diabetic Appropriate PO SCH (19:57)
[2020-12-13] MEDS: EFFEXOR XR 150 MG CAP 24-HR PO SCH (21:06)
[2020-12-13] MEDS: ZOCOR TAB 10 MG PO SCH (21:07)
[2020-12-13] MEDS: ZITHROMAX INJ 500 MG VIAL 250 MG in NS 250 ML IV 250 ML IV SCH (21:08)
[2020-12-14 04:47] LABS: BASOPHILS % (AUTO) 0.3 % (0.2-1.0); HEMATOCRIT 27.8 % (36.0-47.0); HEMOGLOBIN 8.6 g/dL (12.0-16.0); LYMPHOCYTES # (AUTO) 0.7 X10^3/uL (1.3-2.9); MEAN CORPUSCULAR HEMOGLOBIN 24.5 pg (27.0-34.0); MEAN CORPUSCULAR HGB CONC 31.1 g/dL (33.0-35.0); MEAN CORPUSCULAR VOLUME 78.8 fL (80.0-100.0); MEAN PLATELET VOLUME 7.4 fL (7.4-11.0); MONOCYTES # (AUTO) 0.3 x10^3/uL (0.3-0.8); MONOCYTES % (AUTO) 2.5 % (0.0-13.0); NEUTROPHILS % (AUTO) 92.2 % (42.0-75.0); PLATELET COUNT 447 X10^3/uL (150.0-450.0); RED BLOOD COUNT 3.53 X10^6/uL (3.5-5.4); RED CELL DISTRIBUTION WIDTH 15.9 % (11.6-16.5); WHITE BLOOD COUNT 14.1 X10^3/uL (3.6-10.0)
[2020-12-14 04:58] LABS: ALANINE AMINOTRANSFERASE 20 Units/L (12-78); ALBUMIN 2.6 g/dL (3.4-5.0); ALKALINE PHOSPHATASE 101 Units/L (46-116); ASPARTATE AMINO TRANSFERASE 15 Units/L (15-37); BLOOD UREA NITROGEN 29 mg/dL (7-18); CALCIUM 8.2 mg/dL (8.5-10.1); CARBON DIOXIDE 27.2 mmol/L (21-32); CHLORIDE 104 mmol/L (98-107); COR CA(FOR HYPOALB) 9.3 mg/dL (8.5-10.1); COR NA(FOR HYPERGLY) 144 mmol/L (136-145); CREATININE 1.12 mg/dL (0.55-1.02); SODIUM 140 mmol/L (136-145); TOTAL PROTEIN 6.5 g/dL (6.4-8.2); eGFR NON BLACK RACES 53 (>60)
[2020-12-14 05:13] LABS: PLATELET MORPHOLOGY COMMENT NORMAL (NORMAL)
[2020-12-14] MEDS: HumuLIN R SC PRN ×4 (06:15→20:35)
[2020-12-14] MEDS: GLUCOTROL PO SCH ×2 (06:15→16:38)
[2020-12-14] MEDS: NEURONTIN TAB 600 MG PO SCH ×3 (06:15→21:17)
[2020-12-14] MEDS: KAYEXALATE SUSP PO SCH ×2 (08:07→20:35)
[2020-12-14] MEDS: VITAMIN D3 125 mcg (5,000 UNITS) PO SCH (08:08)
[2020-12-14] MEDS: PROTONIX TAB 40 MG PO SCH (08:08)
[2020-12-14] MEDS: ZESTRIL TAB 5 MG PO SCH (08:08)
[2020-12-14] MEDS: VITAMIN C PO SCH (08:08)
[2020-12-14] MEDS: REMDESIVIR 100 MG in NS 250 ML IV 250 ML IV SCH (08:09)
[2020-12-14] MEDS ORDERED: LASIX IVP ONE (08:16)
[2020-12-14] MEDS: LOVENOX INJ 30 MG SYR SC SCH ×2 (08:24→20:35)
[2020-12-14] MEDS: SOLU-Medrol 125 MG VIAL IVP SCH ×2 (08:24→20:32)
[2020-12-14] MEDS: DUONEB 0.5 MG/3 MG (3 mL) NEB SCH ×4 (08:37→21:15)
--- NOTE | 2020-12-14 08:58 | PCM.PROG ---
Progress Note Progress Note for Day of Date of Exam: 12/14/20 Subjective Subjective: Patient seen at bedside, no events overnight. Patient remains on 2L nasal cannula with sats>95%. She has been ambulating in the room and worked with PT/OT yesterday. She states her dyspnea on exertion has improved. Denies fever or chills. Patient's BP has been elevated, SBP in 180s this morning. Labs: WBC 14.1 Hgb 8.6 K: 4.5 BUN/Cr: 29/1.12 Glucose 259 Iron 25 normal ferritin/Vit B12 ECHO: Grade 1 DD, EF 56% CXR: suggestive of CHF, bilateral pneumonia Plan: Wean O2 as tolerated to keep sats >92%. RT consult for walk test and home O2 eval. PT/OT as tolerated. Taper solumedrol to 60 mg q12H. Will give one dose of IV lasix 40 mg. Continue Remdesvir, Rocephin and Azithromycin. Continue pulmonary toilet with nebs and IS. Add iron supplement. Monitor AM labs/imaging. Past Medical Family Social History Past Med/Fam/Surg Hx: No changes since H&P Allergies: Allergies No Known Drug Allergies Allergy (Verified 12/11/20 13:52) Review of Systems ROS: No change since H&P Vital Signs and I&O's Vital Signs: Temperature 97.9 F Pulse Rate 86 Respiratory Rate 28 Blood Pressure 180/80 O2 Sat by Pulse Oximetry 95 Intake and Output: Intake & Output 12/11/20 12/12/20 12/13/20 12/14/20 23:59 23:59 23:59 23:59 Intake Total 3164 / 3164 3035 / 3035 264 / 264 Output Total 400 / 400 1200 / 1200 Balance 2764 / 2764 1835 / 1835 264 / 264 Physical Exam Oriented: Normal Eyes: Normal Ear: Normal Nose: Normal Throat: Normal Respiratory: Generalized and [place] Cardiovascular: Normal Auscultation: Bowel Sounds: Normal Tenderness: Normal Skin: Normal Musculoskeletal: Normal Psychiatric: Normal Mood Description: Calm and Appropriate Affect: Normal Speech Pattern: Clear and Appropriate Laboratory and Diagnostics Result Diagrams: 12/14/20 04:15 12/14/20 04:15 Labs: 12/11/20 15:03 Blood Blood Culture - Preliminary 12/11/20 14:57 Blood Blood Culture - Preliminary Laboratory WBC 14.1 X10^3/uL (3.6-10.0) H 12/14/20 04:15 RBC 3.53 X10^6/uL (3.5-5.4) 12/14/20 04:15 Hgb 8.6 g/dL (12.0-16.0) L 12/14/20 04:15 Hct 27.8 % (36.0-47.0) L 12/14/20 04:15 MCV 78.8 fL (80.0-100.0) L 12/14/20 04:15 MCH 24.5 pg (27.0-34.0) L 12/14/20 04:15 MCHC 31.1 g/dL (33.0-35.0) L 12/14/20 04:15 RDW 15.9 % (11.6-16.5) 12/14/20 04:15 Plt Count 447 X10^3/uL (150.0-450.0) 12/14/20 04:15 Plt Count Comment Adequate (ADEQUATE) 12/14/20 04:15 MPV 7.4 fL (7.4-11.0) 12/14/20 04:15 Neut % (Auto) 92.2 % (42.0-75.0) H 12/14/20 04:15 Lymph % (Auto) 5.0 % (21.0-51.0) L 12/14/20 04:15 Brooks % (Auto) 2.5 % (0.0-13.0) 12/14/20 04:15 Eos % (Auto) 0.0 % (0.9-2.9) L 12/14/20 04:15 Baso % (Auto) 0.3 % (0.2-1.0) 12/14/20 04:15 Neut # (Auto) 13.0 x10^3/uL (2.2-4.8) H 12/14/20 04:15 Lymph # (Auto) 0.7 X10^3/uL (1.3-2.9) L 12/14/20 04:15 Brooks # (Auto) 0.3 x10^3/uL (0.3-0.8) 12/14/20 04:15 Eos # (Auto) 0.0 x10^3/uL (0.0-0.2) 12/14/20 04:15 Baso # (Auto) 0.0 X10^3/uL (0.0-0.1) 12/14/20 04:15 Absolute Nucleated RBC 0.0 /100WBC 12/14/20 04:15 Total Counted 100 12/14/20 04:15 Neutrophils % (Manual) 94 % (39-76) H 12/14/20 04:15 Band Neutrophils % 2 % (0-10) 12/11/20 14:57 Lymphocytes % (Manual) 3 % (13-43) L 12/14/20 04:15 Monocytes % (Manual) 3 % (4-9) L 12/14/20 04:15 Plt Morphology Comment Normal (NORMAL) 12/14/20 04:15 RBC Morphology Normal (NORMAL) 12/14/20 04:15 Hypochromasia Slight A 12/13/20 04:50 Anisocytosis Slight A 12/13/20 04:50 Microcytosis Slight A 12/13/20 04:50 D-Dimer 1.28 ug/ml (0.0-0.57) H* 12/11/20 14:57 Sodium 140 mmol/L (136-145) 12/14/20 04:15 Corrected Sodium 144 mmol/L (136-145) 12/14/20 04:15 Potassium 4.5 mmol/L (3.5-5.1) 12/14/20 04:15 Chloride 104 mmol/L (98-107) 12/14/20 04:15 Carbon Dioxide 27.2 mmol/L (21-32) 12/14/20 04:15 BUN 29 mg/dL (7-18) H 12/14/20 04:15 Creatinine 1.12 mg/dL (0.55-1.02) H 12/14/20 04:15 Est GFR (MDRD) Af Amer > 60 (>60) 12/14/20 04:15 Est GFR (MDRD) Non-Af 53 (>60) L 12/14/20 04:15 Glucose 259 mg/dL (65-99) H 12/14/20 04:15 POC Glucose (mg/dL) 247 mg/dL (65-99) H 12/14/20 04:22 Calcium 8.2 mg/dL (8.5-10.1) L 12/14/20 04:15 Corrected Calcium 9.3 mg/dL (8.5-10.1) 12/14/20 04:15 Iron 25 ug/dL (50-175) L 12/13/20 04:50 Ferritin 76 ng/mL (8-252) 12/13/20 04:50 Total Bilirubin 0.30 mg/dL (0.2-1.0) 12/14/20 04:15 AST 15 Units/L (15-37) 12/14/20 04:15 ALT 20 Units/L (12-78) 12/14/20 04:15 Alkaline Phosphatase 101 Units/L (46-116) 12/14/20 04:15 Troponin I < 0.02 ng/mL (0-1.5) 12/11/20 14:57 C-Reactive Protein 6.20 mg/L (0-3.0) H 12/13/20 04:50 Total Protein 6.5 g/dL (6.4-8.2) 12/14/20 04:15 Albumin 2.6 g/dL (3.4-5.0) L 12/14/20 04:15 Globulin 3.9 g/dL (2.5-4.5) 12/14/20 04:15 Albumin/Globulin Ratio 0.7 Ratio (1.1-2.1) L 12/14/20 04:15 Vitamin B12 303 pg/mL (193-986) 12/13/20 04:50 SARS-CoV-2 (PCR) Positive (NEGATIVE) A 12/11/20 15:10 Influenza Type A (PCR) Negative (NEGATIVE) 12/11/20 15:10 Influenza Type B (PCR) Negative (NEGATIVE) 12/11/20 15:10 RSV (PCR) Negative (NEGATIVE) 12/11/20 15:10 Plan (1) Acute respiratory failure with hypoxia: Status: Acute (2) Pneumonia due to COVID-19 virus: Status: Acute (3) Bilateral pleural effusion: Status: Acute (4) HTN (hypertension): Status: Acute Qualifiers: Hypertension type: essential hypertension Qualified Code(s): I10 - Essential (primary) hypertension (5) DDD (degenerative disc disease): Status: Acute Qualifiers: Spinal region: lumbosacral Qualified Code(s): M51.37 - Other intervertebral disc degeneration, lumbosacral region (6) Diabetes: Status: Acute Qualifiers: Diabetes mellitus type: type 2 Diabetes mellitus [facility] insulin use: without [facility] use Diabetes mellitus complication status: with hyperglycemia Qualified Code(s): E11.65 - Type 2 diabetes mellitus with hyperglycemia (7) Hyperkalemia: Status: Acute
[2020-12-14] MEDS ORDERED: LASIX PO SCH (09:00)
[2020-12-14] MEDS ORDERED: APRESOLINE INJ 20 MG VIAL IVP PRN (12:24)
[2020-12-14] MEDS: ROCEPHIN 1 GRAM IV PREMIX 1 G/50 ML IV.SOLN. IV SCH (14:31)
[2020-12-14] MEDS: FERROUS GLUCONATE PO SCH (16:38)
[2020-12-14] MEDS: SNACK - Diabetic Appropriate PO SCH (20:32)
[2020-12-14] MEDS: ZITHROMAX INJ 500 MG VIAL 250 MG in NS 250 ML IV 250 ML IV SCH (20:33)
[2020-12-14] MEDS: ZOCOR TAB 10 MG PO SCH (20:34)
[2020-12-14] MEDS: EFFEXOR XR 150 MG CAP 24-HR PO SCH (20:34)
[2020-12-14] MEDS ORDERED: DESYREL PO SCH (21:00)
[2020-12-15 05:06] LABS: BASOPHILS % (AUTO) 0.1 % (0.2-1.0); HEMATOCRIT 29.3 % (36.0-47.0); HEMOGLOBIN 9.2 g/dL (12.0-16.0); LYMPHOCYTES # (AUTO) 0.6 X10^3/uL (1.3-2.9); LYMPHOCYTES % (AUTO) 7.7 % (21.0-51.0); MEAN CORPUSCULAR HEMOGLOBIN 24.9 pg (27.0-34.0); MEAN CORPUSCULAR HGB CONC 31.4 g/dL (33.0-35.0); MEAN CORPUSCULAR VOLUME 79.2 fL (80.0-100.0); MEAN PLATELET VOLUME 7.4 fL (7.4-11.0); MONOCYTES # (AUTO) 0.3 x10^3/uL (0.3-0.8); MONOCYTES % (AUTO) 4.3 % (0.0-13.0); NEUTROPHILS % (AUTO) 87.9 % (42.0-75.0); PLATELET COUNT 415 X10^3/uL (150.0-450.0); RED CELL DISTRIBUTION WIDTH 15.8 % (11.6-16.5); WHITE BLOOD COUNT 7.9 X10^3/uL (3.6-10.0)
[2020-12-15 05:19] LABS: ALANINE AMINOTRANSFERASE 26 Units/L (12-78); ALBUMIN 2.6 g/dL (3.4-5.0); ALKALINE PHOSPHATASE 95 Units/L (46-116); ASPARTATE AMINO TRANSFERASE 14 Units/L (15-37); BLOOD UREA NITROGEN 33 mg/dL (7-18); CARBON DIOXIDE 30.6 mmol/L (21-32); CHLORIDE 104 mmol/L (98-107); COR CA(FOR HYPOALB) 9.1 mg/dL (8.5-10.1); COR NA(FOR HYPERGLY) 147 mmol/L (136-145); CREATININE 1.13 mg/dL (0.55-1.02); SODIUM 142 mmol/L (136-145); TOTAL PROTEIN 6.4 g/dL (6.4-8.2); eGFR NON BLACK RACES 52 (>60)
[2020-12-15] MEDS: NEURONTIN TAB 600 MG PO SCH ×2 (05:34→17:16)
[2020-12-15] MEDS: HumuLIN R SC PRN (05:35)
[2020-12-15] MEDS: FERROUS GLUCONATE PO SCH (06:10)
[2020-12-15] MEDS: GLUCOTROL PO SCH (06:10)
[2020-12-15] MEDS ORDERED: ZESTRIL TAB 20 MG ONE (08:33)
[2020-12-15] MEDS: DUONEB 0.5 MG/3 MG (3 mL) NEB SCH ×3 (08:41→16:54)
--- NOTE | 2020-12-15 08:42 | W.DIS.FURT ---
Summary of Discharge Discharge Summary of Date Date of Exam: 12/15/20 Admission Date Date of Admission: 12/11/20 Admission Diagnosis Patient Problems (Updated 12/18/20 @ 13:57 by Aster Paul) Pneumonia due to COVID-19 virus (Acute) U07.1, J12.82 Hospital Course: Ms. Diaz is a 60 y/o female with a PMH of Type 2 DM, HTN, HLD, chronic back pain presented with worsening dyspnea and cough. She states she has been gradually worsening for the past week. She states yesterday she felt like her breathing was worse so she came to the ED. She reports feeling tired. Denies GI Sx. Her appetite has been normal. Her family member who lives a few houses away from her was recently diagnosed with COVID and she had been exposed. Denies fever or chills. She is currently on 2L NC with sats > 95%. She reports worsening dyspnea on exertion. In the ED, COVID-19 test was positive, flu and RSV negative. Patient had elevated d-dimer and CRP. CTA-chest was negative for PE, did show bilateral effusions concerning for CHF and ground glass opacities suggestive of COVID-19 pneumonia. Patient was started on IV Remdesivir, IV antibiotics and solumedrol. She did require 2L NC oxygen. Patient's labs were monitored daily and electrolytes replaced as needed. She was also started on vitamin support and lovenox for DVT ppx. Patient also had routine CXR. She did receive one dose of IV lasix. ECHO was done which showed grade 1 diastolic dysfunction, EF 56%. Patient also had iron def anemia sow as started on iron supplement. PT/OT was consulted and patient was recommended home health. She remained on 2L NC and sats remained above 95%/ Patient's respiratory status continued to improve and patient was ambulating in the room. RT was consulted and patient was qualified for 2L home oxygen. Patient was stable for discharge and will f/u with PCP in one week. She was discharged on oral antibiotic, prednisone and breathing treatments. Vital Signs: Vital Signs (72 hours) 12/12/20 09:00 12/12/20 10:00 12/12/20 11:00 Temperature Pulse Rate 90 83 81 Respiratory Rate 23 17 26 H Blood Pressure 171/81 150/72 157/73 O2 Sat by Pulse Oximetry 96 93 L 94 L 12/12/20 12:00 12/12/20 13:00 12/12/20 14:00 Temperature 98.0 F Pulse Rate 71 87 80 Respiratory Rate 20 33 H 23 Blood Pressure 161/87 176/79 162/74 O2 Sat by Pulse Oximetry 100 98 96 12/12/20 15:00 12/12/20 16:00 12/12/20 17:00 Temperature 97.5 F L Pulse Rate 84 74 69 Respiratory Rate 24 29 H 26 H Blood Pressure 155/104 187/88 164/74 O2 Sat by Pulse Oximetry 94 L 98 99 12/12/20 18:00 12/12/20 19:00 12/12/20 20:00 Temperature 97.6 F Pulse Rate 87 75 80 Respiratory Rate 25 H 27 H 27 H Blood Pressure 175/79 143/63 166/76 O2 Sat by Pulse Oximetry 96 95 97 12/12/20 20:16 12/12/20 21:00 12/12/20 22:00 Temperature Pulse Rate 84 93 H 74 Respiratory Rate 26 H 27 H Blood Pressure 166/76 119/56 O2 Sat by Pulse Oximetry 96 97 97 12/12/20 23:00 12/13/20 00:00 12/13/20 01:00 Temperature 98 F Pulse Rate 71 77 82 Respiratory Rate 20 20 24 Blood Pressure 129/64 147/66 165/78 O2 Sat by Pulse Oximetry 98 98 98 12/13/20 02:00 12/13/20 03:00 12/13/20 04:00 Temperature 98.0 F Pulse Rate 80 89 65 Respiratory Rate 26 H 26 H 16 Blood Pressure 153/72 156/83 154/73 O2 Sat by Pulse Oximetry 97 12/13/20 05:00 12/13/20 06:00 12/13/20 07:00 Temperature Pulse Rate 72 61 69 Respiratory Rate 18 23 33 H Blood Pressure 172/79 169/77 186/86 O2 Sat by Pulse Oximetry 12/13/20 08:00 12/13/20 09:00 12/13/20 10:00 Temperature 97.9 F Pulse Rate 79 86 79 Respiratory Rate 37 H 34 H 17 Blood Pressure 209/93 199/121 180/77 O2 Sat by Pulse Oximetry 12/13/20 11:00 12/13/20 12:00 12/13/20 13:00 Temperature 98 F Pulse Rate 67 81 92 H Respiratory Rate 17 24 27 H Blood Pressure 137/64 180/81 186/88 O2 Sat by Pulse Oximetry 12/13/20 14:00 12/13/20 15:00 12/13/20 16:00 Temperature 98.1 F Pulse Rate 78 88 83 Respiratory Rate 24 35 H 18 Blood Pressure 175/81 171/87 177/90 O2 Sat by Pulse Oximetry 12/13/20 17:15 12/13/20 18:00 12/13/20 19:00 Temperature 98.0 F Pulse Rate 95 H 84 85 Respiratory Rate 34 H 26 H 24 Blood Pressure 178/80 184/81 158/76 O2 Sat by Pulse Oximetry 95 12/13/20 20:00 12/13/20 20:40 12/13/20 21:00 Temperature Pulse Rate 86 80 90 Respiratory Rate 26 H 31 H Blood Pressure 167/81 197/84 O2 Sat by Pulse Oximetry 96 95 94 L 12/13/20 22:00 12/13/20 23:00 12/14/20 00:00 Temperature 97.7 F Pulse Rate 89 73 79 Respiratory Rate 26 H 28 H 27 H Blood Pressure 178/81 168/79 185/84 O2 Sat by Pulse Oximetry 95 98 98 12/14/20 01:00 12/14/20 02:00 12/14/20 03:00 Temperature Pulse Rate 95 H 79 78 Respiratory Rate 20 32 H 22 Blood Pressure 181/84 183/82 175/85 O2 Sat by Pulse Oximetry 96 96 95 12/14/20 04:00 12/14/20 05:00 12/14/20 06:00 Temperature 97.7 F Pulse Rate 79 72 77 Respiratory Rate 30 H 25 H 36 H Blood Pressure 139/61 189/88 196/91 O2 Sat by Pulse Oximetry 93 L 92 L 93 L 12/14/20 07:00 12/14/20 08:00 12/14/20 08:37 Temperature 97.9 F Pulse Rate 80 86 84 Respiratory Rate 37 H 28 H Blood Pressure 211/89 180/80 O2 Sat by Pulse Oximetry 92 L 95 94 L 12/14/20 09:30 12/14/20 10:00 12/14/20 11:00 Temperature Pulse Rate 83 74 79 Respiratory Rate 30 H 34 H 32 H Blood Pressure 198/85 170/79 191/86 O2 Sat by Pulse Oximetry 93 L 95 97 12/14/20 12:00 12/14/20 12:11 12/14/20 13:00 Temperature 97.7 F Pulse Rate 76 78 99 H Respiratory Rate 32 H 21 Blood Pressure 177/84 183/80 O2 Sat by Pulse Oximetry 98 97 96 12/14/20 14:00 12/14/20 15:00 12/14/20 16:00 Temperature Pulse Rate 88 89 75 Respiratory Rate 30 H 35 H 22 Blood Pressure 188/81 187/78 174/79 O2 Sat by Pulse Oximetry 96 96 98 12/14/20 17:01 12/14/20 17:22 12/14/20 17:58 Temperature Pulse Rate 77 79 94 H Respiratory Rate 20 21 Blood Pressure 202/91 187/79 O2 Sat by Pulse Oximetry 98 99 97 12/14/20 18:00 12/14/20 19:00 12/14/20 20:00 Temperature 97.9 F Pulse Rate 93 H 91 H 81 Respiratory Rate 21 22 25 H Blood Pressure 177/79 182/82 191/84 O2 Sat by Pulse Oximetry 97 96 94 L 12/14/20 21:00 12/14/20 21:15 12/14/20 22:00 Temperature Pulse Rate 75 73 63 Respiratory Rate 23 16 Blood Pressure 167/80 135/60 O2 Sat by Pulse Oximetry 96 97 95 12/14/20 23:00 12/15/20 00:00 12/15/20 01:00 Temperature 98.2 F Pulse Rate 69 58 L 61 Respiratory Rate 20 16 16 Blood Pressure 164/76 140/66 158/75 O2 Sat by Pulse Oximetry 98 98 99 12/15/20 02:00 12/15/20 03:00 12/15/20 04:00 Temperature 98.0 F Pulse Rate 60 76 76 Respiratory Rate 15 25 H 21 Blood Pressure 148/72 181/84 170/86 O2 Sat by Pulse Oximetry 99 96 97 12/15/20 05:00 12/15/20 06:00 12/15/20 07:00 Temperature Pulse Rate 70 71 83 Respiratory Rate 24 23 22 Blood Pressure 183/85 177/84 185/89 O2 Sat by Pulse Oximetry 98 97 95 Labs: Laboratory Last Values WBC 7.9 X10^3/uL (3.6-10.0) 12/15/20 04:30 RBC 3.70 X10^6/uL (3.5-5.4) 12/15/20 04:30 Hgb 9.2 g/dL (12.0-16.0) L 12/15/20 04:30 Hct 29.3 % (36.0-47.0) L 12/15/20 04:30 MCV 79.2 fL (80.0-100.0) L 12/15/20 04:30 MCH 24.9 pg (27.0-34.0) L 12/15/20 04:30 MCHC 31.4 g/dL (33.0-35.0) L 12/15/20 04:30 RDW 15.8 % (11.6-16.5) 12/15/20 04:30 Plt Count 415 X10^3/uL (150.0-450.0) 12/15/20 04:30 Plt Count Comment Adequate (ADEQUATE) 12/14/20 04:15 MPV 7.4 fL (7.4-11.0) 12/15/20 04:30 Neut % (Auto) 87.9 % (42.0-75.0) H 12/15/20 04:30 Lymph % (Auto) 7.7 % (21.0-51.0) L 12/15/20 04:30 [place] % (Auto) 4.3 % (0.0-13.0) 12/15/20 04:30 Eos % (Auto) 0.0 % (0.9-2.9) L 12/15/20 04:30 Baso % (Auto) 0.1 % (0.2-1.0) L 12/15/20 04:30 Neut # (Auto) 7.0 x10^3/uL (2.2-4.8) H 12/15/20 04:30 Lymph # (Auto) 0.6 X10^3/uL (1.3-2.9) L 12/15/20 04:30 [place] # (Auto) 0.3 x10^3/uL (0.3-0.8) 12/15/20 04:30 Eos # (Auto) 0.0 x10^3/uL (0.0-0.2) 12/15/20 04:30 Baso # (Auto) 0.0 X10^3/uL (0.0-0.1) 12/15/20 04:30 Absolute Nucleated RBC 0.1 /100WBC 12/15/20 04:30 Total Counted 100 12/14/20 04:15 Neutrophils % (Manual) 94 % (39-76) H 12/14/20 04:15 Band Neutrophils % 2 % (0-10) 12/11/20 14:57 Lymphocytes % (Manual) 3 % (13-43) L 12/14/20 04:15 Monocytes % (Manual) 3 % (4-9) L 12/14/20 04:15 Plt Morphology Comment Normal (NORMAL) 12/14/20 04:15 RBC Morphology Normal (NORMAL) 12/14/20 04:15 Hypochromasia Slight A 12/13/20 04:50 Anisocytosis Slight A 12/13/20 04:50 Microcytosis Slight A 12/13/20 04:50 D-Dimer 1.28 ug/ml (0.0-0.57) H* 12/11/20 14:57 Sodium 142 mmol/L (136-145) 12/15/20 04:30 Corrected Sodium 147 mmol/L (136-145) H 12/15/20 04:30 Potassium 4.1 mmol/L (3.5-5.1) 12/15/20 04:30 Chloride 104 mmol/L (98-107) 12/15/20 04:30 Carbon Dioxide 30.6 mmol/L (21-32) 12/15/20 04:30 BUN 33 mg/dL (7-18) H 12/15/20 04:30 Creatinine 1.13 mg/dL (0.55-1.02) H 12/15/20 04:30 Est GFR (MDRD) Af Amer > 60 (>60) 12/15/20 04:30 Est GFR (MDRD) Non-Af 52 (>60) L 12/15/20 04:30 Glucose 288 mg/dL (65-99) H 12/15/20 04:30 POC Glucose (mg/dL) 259 mg/dL (65-99) H 12/15/20 04:37 Calcium 8.0 mg/dL (8.5-10.1) L 12/15/20 04:30 Corrected Calcium 9.1 mg/dL (8.5-10.1) 12/15/20 04:30 Iron 25 ug/dL (50-175) L 12/13/20 04:50 Ferritin 76 ng/mL (8-252) 12/13/20 04:50 Total Bilirubin 0.30 mg/dL (0.2-1.0) 12/15/20 04:30 AST 14 Units/L (15-37) L 12/15/20 04:30 ALT 26 Units/L (12-78) 12/15/20 04:30 Alkaline Phosphatase 95 Units/L (46-116) 12/15/20 04:30 Troponin I < 0.02 ng/mL (0-1.5) 12/11/20 14:57 C-Reactive Protein 6.20 mg/L (0-3.0) H 12/13/20 04:50 Total Protein 6.4 g/dL (6.4-8.2) 12/15/20 04:30 Albumin 2.6 g/dL (3.4-5.0) L 12/15/20 04:30 Globulin 3.8 g/dL (2.5-4.5) 12/15/20 04:30 Albumin/Globulin Ratio 0.7 Ratio (1.1-2.1) L 12/15/20 04:30 Vitamin B12 303 pg/mL (193-986) 12/13/20 04:50 SARS-CoV-2 (PCR) Positive (NEGATIVE) A 12/11/20 15:10 Influenza Type A (PCR) Negative (NEGATIVE) 12/11/20 15:10 Influenza Type B (PCR) Negative (NEGATIVE) 12/11/20 15:10 RSV (PCR) Negative (NEGATIVE) 12/11/20 15:10 Reason For Visit: COVID PNEUMONIA,ACUTE DYSPNEA Discharge Date Discharge Date: 12/15/20 Discharge Diagnosis All Active Problems (Updated 12/18/20 @ 13:57 by Aster Paul) Hyperkalemia (Acute) Diabetes (Chronic) DDD (degenerative disc disease) (Chronic) HTN (hypertension) (Chronic) Acute respiratory failure with hypoxia (Acute) Bilateral pleural effusion (Acute) Nondisplaced fracture of left humerus (Chronic) Pneumonia due to COVID-19 virus (Acute) Left humeral fracture (Chronic) Plan of Treatment: Continue with present treatment and follow up plan. Pt is to keep follow up appointment as instructed and take medications as ordered. Discharge Medications Discharge Medications: No Known Drug Allergies Allergy (Verified 12/11/20 13:52) CONTINUE taking the following medications gabapentin 800 mg PO TID 12/11/20 [History] lisinopril 5 mg PO DAILY 12/11/20 [History] allopurinol 100 mg PO BID 12/13/20 [History] celecoxib 200 mg PO BID 12/13/20 [History] furosemide 40 mg PO DAILY 12/13/20 [History] tramadol 50 mg PO QID PRN 12/13/20 [History] trazodone 100 mg PO HS 12/13/20 [History] venlafaxine 150 mg PO DAILY 12/13/20 [History] New Prescriptions albuterol sulfate 2 puff INHALATION Q4-6H PRN #6.7 g 12/15/20 [Rx] cefdinir 300 mg PO BID 5 Days #10 cap 12/15/20 [Rx] ferrous gluconate 324 mg PO BIDWM 30 Days #60 tab 12/15/20 [Rx] ipratropium-albuterol 3 ml NEB QID 7 Days #30 vial 12/15/20 [Rx] lisinopril 20 mg PO DAILY 30 Days #30 tab 12/15/20 [Rx] prednisone 20 mg PO DAILY 5 Days #5 tab 12/15/20 [Rx] Follow up and Referral Follow Up: 1 Week (PCP) Discharge Disposition Discharge Disposition: Home with home health Discharge Condition: Stable Discharge Plan Discharge Plan Hospital Course: Ms. Diaz is a 60 y/o female with a PMH of Type 2 DM, HTN, HLD, chronic back pain presented with worsening dyspnea and cough. She states she has been gradually worsening for the past week. She states yesterday she felt like her breathing was worse so she came to the ED. She reports feeling tired. Denies GI Sx. Her appetite has been normal. Her family member who lives a few houses away from her was recently diagnosed with COVID and she had been exposed. Denies fever or chills. She is currently on 2L NC with sats > 95%. She reports worsening dyspnea on exertion. In the ED, COVID-19 test was positive, flu and RS V negative. Patient had elevated d-dimer and CRP. CTA-chest was negative for PE, did show bilateral effusions concerning for CHF and ground glass opacities suggestive of COVID-19 pneumonia. Patient was started on IV Remdesivir, IV antibiotics and solumedrol. She did require 2L [place] oxygen. Patient's labs were monitored daily and electrolytes replaced as needed. She was also started on vitamin support and lovenox for DVT ppx. Patient also had routine CXR. She did receive one dose of IV lasix. ECHO was done which showed grade 1 diastolic dysfunction, EF 56%. Patient also had iron def anemia sow as started on iron supplement. PT/OT was consulted and patient was recommended home health. She remained on 2L NC and sats remained above 95%/ Patient's respiratory status continued to improve and patient was ambulating in the room. RT was consulted and patient was qualified for 2L home oxygen. Patient was stable for discharge and will f/u with PCP in one week. She was discharged on oral antibiotic, prednisone and breathing treatments. Patient Disposition: HOME HEALTH SERVICE Condition: Stable Health Concerns: Post Hospitalization: new medications and changes needed to prevent readmission or further decline. Pt educated and given instructions on all concerns. Care Plan Goals: Problem: Infection Goal: Temperature within normal limits. Resolved infection. Instructions: Follow provided instructions. Follow up with primary physician as directed. Contact primary care physician or report to the closest Emergency Room if condition worsens. Plan of Treatment: Continue with present treatment and follow up plan. Pt is to keep follow up ap pointment as instructed and take medications as ordered. Prescriptions: New ipratropium-albuterol 0.5 mg-3 mg(2.5 mg base)/3 mL Solution For Nebulization 3 ml NEB QID 7 Days Qty: 30 RF: 1 ferrous gluconate 324 mg (38 mg iron) Tablet 324 mg PO BIDWM 30 Days Qty: 60 RF: 0 lisinopril 20 mg Tablet 20 mg PO DAILY 30 Days Qty: 30 RF: 1 simvastatin 10 mg Tablet 10 mg PO HS 30 Days Qty: 30 RF: 0 glipizide 5 mg Tablet 5 mg PO BIDBRS 30 Days Qty: 60 RF: 0 prednisone 20 mg tablet 20 mg PO DAILY 5 Days Qty: 5 RF: 0 cefdinir 300 mg capsule 300 mg PO BID 5 Days Qty: 10 RF: 0 albuterol sulfate 90 mcg/actuation HFA aerosol inhaler 2 puff inhalation Q4-6H PRNQty: 6.7 RF: 1 Continued gabapentin 800 mg tablet 800 mg PO TID RF: 0 venlafaxine 150 mg capsule,extended release 24hr 150 mg PO DAILY RF: 0 tramadol 50 mg tablet 50 mg PO QID PRN (Reason: Pain) RF: 0 trazodone 100 mg tablet 100 mg PO HS RF: 0 furosemide 40 mg tablet 40 mg PO DAILY RF: 0 celecoxib 200 mg capsule 200 mg PO BID RF: 0 allopurinol 100 mg tablet 100 mg PO BID RF: 0 Discontinued lisinopril 5 mg tablet 5 mg PO DAILY RF: 0 Follow ups/Referrals Follow ups/Referrals: Aster Paul [Primary Care Provider] - 12/26/20 3:00 pm Instructions Instructions: Viral Respiratory Infection, [id number], Hyperglycemia, [id number], Home Oxygen Use, Adult, How to Use a Nebulizer, Adult, Hypertension, [id number], Heart Failure, [id number] Stand Alone Forms: Excuse From Work or School, Precautions for COVID19, Patient Portal, Social Distancing
[2020-12-15] MEDS: VITAMIN D3 125 mcg (5,000 UNITS) PO SCH (08:49)
[2020-12-15] MEDS: PROTONIX TAB 40 MG PO SCH (08:49)
[2020-12-15] MEDS: VITAMIN C PO SCH (08:49)
[2020-12-15] MEDS: LOVENOX INJ 30 MG SYR SC SCH (08:50)
[2020-12-15] MEDS: REMDESIVIR 100 MG in NS 250 ML IV 250 ML IV SCH (08:53)
[2020-12-15] MEDS ORDERED: SOLU-Medrol 40 MG VIAL IVP SCH (09:00)
[2020-12-15] MEDS ORDERED: ZESTRIL TAB 20 MG PO SCH (09:00)
[2020-12-15 11:31] VITALS: BP 169/81
[2020-12-15] MEDS: ROCEPHIN 1 GRAM IV PREMIX 1 G/50 ML IV.SOLN. IV SCH (17:16)
== END 2020-12-15 17:08 | disposition home health service (06) | DRG 177 ==
LOC: ER 13:44 → ICU 13:44 → OBSVTOIN 20:18 → ICU 22:35
PROVIDERS: ADMIT Internal Medicine; ATTEND Internal Medicine
DX: U07.1 COVID-19; J90 Pleural effusion, not elsewhere classified; J12.82 Pneumonia due to coronavirus disease 2019; R79.89 Other specified abnormal findings of blood chemistry; M51.37 Other intervertebral disc degeneration, lumbosacral region; I10 Essential (primary) hypertension; J96.01 Acute respiratory failure with hypoxia; R79.82 Elevated C-reactive protein (CRP); E11.65 Type 2 diabetes mellitus with hyperglycemia; E87.5 Hyperkalemia

== ENCOUNTER 2021-02-11 21:26 | Observation (INO) ==
[2021-02-11 22:16] LABS: BASOPHILS # (AUTO) 0.2 X10^3/uL (0.0-0.1); BASOPHILS % (AUTO) 2.1 % (0.2-1.0); EOSINOPHILS # (AUTO) 0.1 x10^3/uL (0.0-0.2); EOSINOPHILS % (AUTO) 1.2 % (0.9-2.9); HEMATOCRIT 37.9 % (36.0-47.0); HEMOGLOBIN 12.6 g/dL (12.0-16.0); LYMPHOCYTES # (AUTO) 2.2 X10^3/uL (1.3-2.9); LYMPHOCYTES % (AUTO) 20.2 % (21.0-51.0); MEAN CORPUSCULAR HEMOGLOBIN 26.4 pg (27.0-34.0); MEAN CORPUSCULAR HGB CONC 33.1 g/dL (33.0-35.0); MEAN CORPUSCULAR VOLUME 79.8 fL (80.0-100.0); MEAN PLATELET VOLUME 8.3 fL (7.4-11.0); MONOCYTES # (AUTO) 0.7 x10^3/uL (0.3-0.8); MONOCYTES % (AUTO) 6.6 % (0.0-13.0); NEUTROPHILS # (AUTO) 7.5 x10^3/uL (2.2-4.8); NEUTROPHILS % (AUTO) 69.9 % (42.0-75.0); PLATELET COUNT 344 X10^3/uL (150.0-450.0); RED BLOOD COUNT 4.76 X10^6/uL (3.5-5.4); RED CELL DISTRIBUTION WIDTH 17.9 % (11.6-16.5); WHITE BLOOD COUNT 10.7 X10^3/uL (3.6-10.0)
[2021-02-11 22:29] LABS: ALANINE AMINOTRANSFERASE 24 Units/L (12-78); ALBUMIN 3.2 g/dL (3.4-5.0); ALKALINE PHOSPHATASE 128 Units/L (46-116); ASPARTATE AMINO TRANSFERASE 24 Units/L (15-37); BLOOD UREA NITROGEN 51 mg/dL (7-18); CALCIUM 8.5 mg/dL (8.5-10.1); CARBON DIOXIDE 27.5 mmol/L (21-32); CHLORIDE 104 mmol/L (98-107); CKMB % 0.6 % (<4); COR CA(FOR HYPOALB) 9.1 mg/dL (8.5-10.1); COR NA(FOR HYPERGLY) 143 mmol/L (136-145); CREATINE KINASE 426 Units/L (26-192); CREATINE KINASE MB 2.6 ng/mL (0-4.0); CREATININE 1.97 mg/dL (0.55-1.02); SODIUM 142 mmol/L (136-145); TOTAL PROTEIN 6.7 g/dL (6.4-8.2); TROPONIN I < 0.02 ng/mL (0-1.5); eGFR NON BLACK RACES 27 (>60)
--- NOTE | 2021-02-11 22:49 | RAD ---
STUDY: FRONTAL AND LATERAL VIEW OF THE CHESTCOMPARISON: 12/13/2020HISTORY: SYNCOPEFINDINGS:Subsegmental atelectasis is notedNo focal consolidation is seen.The heart size is within normal limits.The mediastinum is unremarkable.There is no evidence of pleural effusion or gross pneumothorax.The trachea is midline.On the lateral view, the retrosternal and retrocardiac spaces are clear.IMPRESSION:There is no radiographic evidence of acute cardiopulmonary disease. Overall there is marked improved aeration of the lungs bilaterally when compared to the prior examination dated December 13, 2020.Electronically signed by: Jun Degroot (February 11, 2021 22:47:11)
--- NOTE | 2021-02-11 23:04 | CT ---
STUDY: CT HEAD WITHOUT IV CONTRASTCOMPARISON: NoneTECHNIQUE: axial images were acquired of the head without IV contrast. Coronal and sagittal images were provided. All images were reviewed in a variety of windows and levels.LIMITATIONS: Please note that CT has low sensitivity and accuracy for identifying acute infarction. In addition, there are portions of the brain that are affected by beam hardening artifact which further greatly limits identification of an acute infarct.RADIATION REDUCTION TECHNIQUE: Automated exposure control, Adjustment of the mA and/or kV according to patient size, or iterative reconstruction techniques were used.HISTORY: SYNCOPEFINDINGS:There is no evidence of an acute intracranial bleed.There is no evidence of a mass or midline shift.There is no evidence of an extra-axial fluid collection.The prince-white matter differentiation is within normal limits.The visualized bones are unremarkable.The visualized sinuses are clear.The mastoid air cells are well-aerated.IMPRESSION:THERE IS NO EVIDENCE OF AN ACUTE INTRACRANIAL BLEEDElectronically signed by: Jun Degroot (February 11, 2021 23:02:18)
[2021-02-11] MEDS ORDERED: CARDIZEM INJ 50 MG VIAL IVP ONE (23:24)
--- NOTE | 2021-02-11 23:36 | DR.GENAD ---
HPI Time Seen Time Seen by Provider: 02/11/21 21:30 HPI Comment HPI Comment: Patient presents after a syncopal episode today in the front yard. Patient notes that today she felt "funny and dizzy" and was holding onto the railing to go down from the porch. The next thing she remembers is a friend call ing her name and she was sitting on the ground. Notes that she had a similar episode yesterday where a neighbor found her in the floor of her home. Notes that she had previously been dx with atrial fibrillation, but had been taken off her meds. PMH PMH Past Medical History: CHF, Diabetes, Dyslipidemia and Hypertension Past Surgical History: Yes Surgical History: Cholecystectomy and Hysterectomy Social History Do you use any recreational Drugs:: No ROS Review of Systems Constitutional: See HPI Cardiovascular: See HPI Neurological: Dizziness and Other (syncope) All Other Systems: Reviewed and Negative PE Vital Signs Vitals: Temperature 98.8 F Pulse Rate 144 Respiratory Rate 14 Blood Pressure 114/52 O2 Sat by Pulse Oximetry 94 General Limitations: No Limitations General Appearance: Alert and In No Apparent Distress Head Head Exam: Normal Inspection, Atraumatic and Normocephalic Eyes Eye exam: Normal Appearance and EOMI ENT ENT Exam: Normal Exam and Normal Oropharynx Neck Neck Exam: Normal Inspection, Full ROM and Trachea Midline Chest Chest Inspection: Normal Inspection and Symmetric Chest Wall Rise Respiratory Respiratory Exam: Normal Lung Sounds Bilat Respiratory Exam: Bilateral: Clear to Auscultation Cardiovascular Cardiovascular Exam: Tachycardia, Irregular Rhythm and Other (IRIR) Abdominal Exam Abdominal Exam: Normal Inspection, Normal Bowel Sounds and Soft Extremities Extremities Exam: Normal Inspection and Other (multiple bruises on legs in various stages of resolution) Neurologic Neurological Exam: Alert and Oriented X3 Psychiatric Psychiatric Exam: Normal Affect and Normal Mood Skin Skin Exam: Warm, Dry and Intact COURSE Reevaluation 1st: Unchanged (HR continues to be erratic. ) 2nd: Improved (HR 94 after diltiazem) Consultation Consultation Comments: spoke with Dr. Shaw who accepts patient for admission [facility] Labs Reviewed Laboratory Results Reviewed?: Yes Result Diagrams: 02/11/21 22:01 02/11/21 22:01 Laboratory: WBC 10.7 X10^3/uL (3.6-10.0) H 02/11/21 22:01 RBC 4.76 X10^6/uL (3.5-5.4) 02/11/21 22:01 Hgb 12.6 g/dL (12.0-16.0) 02/11/21 22:01 Hct 37.9 % (36.0-47.0) 02/11/21 22:01 MCV 79.8 fL (80.0-100.0) L 02/11/21 22:01 MCH 26.4 pg (27.0-34.0) L 02/11/21 22:01 MCHC 33.1 g/dL (33.0-35.0) 02/11/21 22: RDW 17.9 % (11.6-16.5) H 02/11/21 22:01 Plt Count 344 X10^3/uL (150.0-450.0) 02/11/21 22:01 MPV 8.3 fL (7.4-11.0) 02/11/21 22:01 Neut % (Auto) 69.9 % (42.0-75.0) 02/11/21 22:01 Lymph % (Auto) 20.2 % (21.0-51.0) L 02/11/21 22: [place] % (Auto) 6.6 % (0.0-13.0) 02/11/21 22: Eos % (Auto) 1.2 % (0.9-2.9) 02/11/21 22:01 Baso % (Auto) 2.1 % (0.2-1.0) H 02/11/21 22:01 Neut # (Auto) 7.5 x10^3/uL (2.2-4.8) H 02/11/21 22:01 Lymph # (Auto) 2.2 X10^3/uL (1.3-2.9) 02/11/21 22:01 [place] # (Auto) 0.7 x10^3/uL (0.3-0.8) 02/11/21 22: Eos # (Auto) 0.1 x10^3/uL (0.0-0.2) 02/11/21 22:01 Baso # (Auto) 0.2 X10^3/uL (0.0-0.1) H 02/11/21 22:01 Absolute Nucleated RBC 0.0 /100WBC 02/11/21 22:01 Sodium 142 mmol/L (136-145) 02/11/21 22:01 Corrected Sodium 143 mmol/L (136-145) 02/11/21 22:01 Potassium 4.7 mmol/L (3.5-5.1) 02/11/21 22:01 Chloride 104 mmol/L (98-107) 02/11/21 22:01 Carbon Dioxide 27.5 mmol/L (21-32) 02/11/21 22:01 BUN 51 mg/dL (7-18) H 02/11/21 22:01 Creatinine 1.97 mg/dL (0.55-1.02) H 02/11/21 22:01 Est GFR (MDRD) Af Amer 33 (>60) L 02/11/21 22:01 Est GFR (MDRD) Non-Af 27 (>60) L 02/11/21 22:01 Glucose 160 mg/dL (65-99) H 02/11/21 22:01 Calcium 8.5 mg/dL (8.5-10.1) 02/11/21 22:01 Corrected Calcium 9.1 mg/dL (8.5-10.1) 02/11/21 22:01 Total Bilirubin 0.60 mg/dL (0.2-1.0) 02/11/21 22:01 AST 24 Units/L (15-37) 02/11/21 22:01 ALT 24 Units/L (12-78) 02/11/21 22:01 Alkaline Phosphatase 128 Units/L (46-116) H 02/11/21 22:01 Creatine Kinase 426 Units/L (26-192) H 02/11/21 22:01 CK-MB (CK-2) 2.6 ng/mL (0-4.0) 02/11/21 22: CK/CKMB % Calc 0.6 % (<4) 02/11/21 22: Troponin I < 0.02 ng/mL (0-1.5) 02/11/21 22:01 Total Protein 6.7 g/dL (6.4-8.2) 02/11/21 22: Albumin 3.2 g/dL (3.4-5.0) L 02/11/21 22:01 Globulin 3.5 g/dL (2.5-4.5) 02/11/21 22:01 Albumin/Globulin Ratio 0.9 Ratio (1.1-2.1) L 02/11/21 22:01 XRAY X-ray Results: STUDY: CT HEAD WITHOUT IV CONTRAST COMPARISON: None TECHNIQUE: axial images were acquired of the head without IV contrast. Coronal and sagittal images were provided. All images were reviewed in a variety of windows and levels. LIMITATIONS: Please note that CT has low sensitivity and accuracy for identifying acute infarction. In addition, there are portions of the brain that are affected by beam hardening artifact which further greatly limits identification of an acute infarct. RADIATION REDUCTION TECHNIQUE: Automated exposure control, Adjustment of the mA and/or kV according to patient size, or iterative reconstruction techniques were used. HISTORY: SYNCOPE FINDINGS: There is no evidence of an acute intracranial bleed. There is no evidence of a mass or midline shift. There is no evidence of an extra-axial fluid collection. The prince-white matter differentiation is within normal limits. The visualized bones are unremarkable. The visualized sinuses are clear. The mastoid air cells are well-aerated. IMPRESSION: THERE IS NO EVIDENCE OF AN ACUTE INTRACRANIAL BLEED Electronically signed by: Jun Degroot (February 11, 2021 23:02:18) STUDY: FRONTAL AND LATERAL VIEW OF THE CHEST COMPARISON: 12/13/2020 HISTORY: SYNCOPE FINDINGS: Subsegmental atelectasis is noted No focal consolidation is seen. The heart size is within normal limits. The mediastinum is unremarkable. There is no evidence of pleural effusion or gross pneumothorax. The trachea is midline. On the lateral view, the retrosternal and retrocardiac spaces are clear. IMPRESSION: There is no radiographic evidence of acute cardiopulmonary disease. Overall there is marked improved aeration of the lungs bilaterally when compared to the prior examination dated December 13, 2020. Electronically signed by: Jun Degroot (February 11, 2021 22:47:11) Opioid Opioid Risk Tool Age (Jluis box if 16-45): No History of Preadolescent Sexual Abuse: No Total: 0 Total Score Risk Category: Low Risk Copyright: Howe predicting aberrant behaviors Diagnosis Discharge Problem: Atrial fibrillation with RVR Syncope Qualifiers: Syncope type: unspecified Qualified Code(s): R55 - Syncope and collapse
[2021-02-11] MEDS ORDERED: CARDIZEM INJ 50 MG VIAL ONE (23:44)
[2021-02-12 01:27] LABS: CKMB % 0.6 % (<4); CREATINE KINASE 396 Units/L (26-192); CREATINE KINASE MB 2.4 ng/mL (0-4.0); TROPONIN I < 0.02 ng/mL (0-1.5)
[2021-02-12] MEDS ORDERED: VENTOLIN or PROAIR HFA IN PRN (02:13)
[2021-02-12] MEDS: NS 1000 ML 1,000 ML IV SCH ×2 (02:20→16:07)
[2021-02-12] MEDS ORDERED: ULTRAM ONE (03:25)
[2021-02-12] MEDS: ULTRAM PO PRN ×2 (03:27→19:30)
[2021-02-12 04:36] VITALS: BMI 32.4
[2021-02-12] MEDS ORDERED: NEURONTIN CAP 400 MG ONE (05:14)
[2021-02-12] MEDS: NEURONTIN CAP 400 MG PO SCH ×3 (05:17→21:00)
[2021-02-12 05:50] LABS: BASOPHILS # (AUTO) 0.1 X10^3/uL (0.0-0.1); BASOPHILS % (AUTO) 0.7 % (0.2-1.0); EOSINOPHILS # (AUTO) 0.1 x10^3/uL (0.0-0.2); EOSINOPHILS % (AUTO) 1.2 % (0.9-2.9); HEMATOCRIT 35.9 % (36.0-47.0); HEMOGLOBIN 11.8 g/dL (12.0-16.0); LYMPHOCYTES # (AUTO) 2.8 X10^3/uL (1.3-2.9); LYMPHOCYTES % (AUTO) 24.5 % (21.0-51.0); MEAN CORPUSCULAR HEMOGLOBIN 26.2 pg (27.0-34.0); MEAN CORPUSCULAR HGB CONC 32.8 g/dL (33.0-35.0); MEAN CORPUSCULAR VOLUME 79.8 fL (80.0-100.0); MEAN PLATELET VOLUME 8.2 fL (7.4-11.0); MONOCYTES # (AUTO) 0.7 x10^3/uL (0.3-0.8); MONOCYTES % (AUTO) 6.5 % (0.0-13.0); NEUTROPHILS # (AUTO) 7.7 x10^3/uL (2.2-4.8); NEUTROPHILS % (AUTO) 67.1 % (42.0-75.0); PLATELET COUNT 293 X10^3/uL (150.0-450.0); RED CELL DISTRIBUTION WIDTH 17.9 % (11.6-16.5); WHITE BLOOD COUNT 11.5 X10^3/uL (3.6-10.0)
[2021-02-12 06:22] LABS: CHOL/HDL RATIO 5.2 (0.0-5.0); CHOLESTEROL 186 mg/dL (0-200); CKMB % 0.8 % (<4); CREATINE KINASE 306 Units/L (26-192); CREATINE KINASE MB 2.3 ng/mL (0-4.0); HDL CHOLESTEROL 36 mg/dL (40-60); TRIGLYCERIDES 124 mg/dL (0-150); TROPONIN I < 0.02 ng/mL (0-1.5)
[2021-02-12] MEDS ORDERED: ZESTRIL TAB 20 MG ONE (08:13)
[2021-02-12] MEDS: EFFEXOR XR 150 MG CAP 24-HR PO SCH (08:36)
[2021-02-12] MEDS: LOPRESSOR TAB 50 MG PO SCH ×2 (08:37→20:47)
[2021-02-12] MEDS: ZYLOPRIM PO SCH ×2 (08:38→20:47)
[2021-02-12] MEDS: ZESTRIL TAB 20 MG PO SCH (08:38)
[2021-02-12] MEDS: PEPCID TAB 20 MG PO SCH (08:42)
[2021-02-12 08:48] LABS: CALCIUM 8.4 mg/dL (8.5-10.1); CARBON DIOXIDE 29.3 mmol/L (21-32); CREATININE 1.54 mg/dL (0.55-1.02)
[2021-02-12] MEDS ORDERED: PLAVIX PO SCH (09:00)
[2021-02-12] MEDS ORDERED: LASIX PO SCH (09:00)
[2021-02-12 09:27] LABS: BILIRUBIN,URINE NEGATIVE (NEGATIVE); BLOOD/HEMOGLOBIN,URINE 2+ (NEGATIVE); GLUCOSE, URINE NEGATIVE (NEGATIVE); KETONES,URINE NEGATIVE (NEGATIVE); LEUKOCYTE ESTERASE ,URINE NEGATIVE (NEGATIVE); NITRITES,URINE NEGATIVE (NEGATIVE); PROTEIN,URINE NEGATIVE (NEGATIVE); UROBILINOGEN,URINE NORMAL (NORMAL)
[2021-02-12 09:34] LABS: APPEARANCE,URINE CLEAR (CLEAR); COLOR,URINE YELLOW (YELLOW)
--- NOTE | 2021-02-12 09:37 | VAS ---
HISTORY: Concern for carotid artery stenosis. Syncope.EXAM: BILATERAL DOPPLER CAROTID ULTRASOUND EXAMTechnique: Multiple prince scale and color flow Doppler images of the right and left carotid arterial system were obtained. The vertebral arterial system was evaluated as well.Findings:Nonocclusive color flow Doppler is seen throughout the right and left carotid arterial system. No hemodynamically significant carotid arterial stenosis is seen based on velocity criteria. There is mild, soft, bilateral carotid atherosclerosis and soft atherosclerotic plaque formation of the bilateral carotid bulbs and ICAs with associated intimal thickening but without evidence for high-grade stenosis (>70%) or occlusion of the carotid arteries. The right vertebral artery demonstrate antegrade flow.IMPRESSION:Mild bilateral carotid atherosclerosis and soft atherosclerotic plaque formation of the bilateral carotid bulbs and in both ICAs with [id number] associated carotid intimal thickening but without evidence for high-grade stenosis or occlusion of the carotid arteries, based on Doppler velocity criteria.Appropriate, antegrade, right vertebral arterial flow. The left vertebral artery was not well evaluated on this exam.Peak right ICA velocity: 80 centimeter/seconds.Peak right CCA velocity: 75 centimeter/seconds.Peak left ICA velocity: 57 centimeter/seconds.Peak left CCA velocity: 69 centimeter/seconds.Right ICA to CCA ratio: 1.1.Left ICA to CCA ratio: 1.04.Electronically signed by: ALBER SANDOVAL III (February 12, 2021 09:35:24)
[2021-02-12 09:40] LABS: AMORPHOUS SEDIMENT,UR 1+ /HPF (NEGATIVE); BACTERIA,URINE 1+ /HPF (NEGATIVE); SQUAMOUS EPITHELIAL CELL,UR FEW /HPF (NEGATIVE)
[2021-02-12 09:41] LABS: YEAST,URINE MODERATE /HPF (NEGATIVE)
[2021-02-12] MEDS: ELIQUIS PO SCH ×2 (09:57→20:47)
--- NOTE | 2021-02-12 11:31 | RAD ---
HISTORYFellSTUDYLumbar spine three [id number] curvature, segmentation and alignment. Nonacute fracture deformity L5 vertebral body. Degenerative disc narrowing and marginal osteophyte formation at several levels. No bone destruction or sacroiliac abnormality identified.IMPRESSIONNo acute findings. Degenerative disc disease and spondylosis. Fracture of L5 is nonacute, and was described on the prior examination.Electronically signed by: SABIHA MICHAUD (February 12, 2021 11:29:02)
[2021-02-12] MEDS: HumuLIN R SUBCUT PRN ×2 (11:35→16:08)
[2021-02-12] MEDS: ROCEPHIN VIAL 1 GRAM 1 G in NS 100 ML IV + SPIKE MINIBAG* 100 ML IV SCH (12:52)
--- NOTE | 2021-02-12 16:01 | DR.H&P ---
H&P History & Physical for Day of: H&P Date: 02/12/21 Chief Complaint Chief Complaint: syncope, fall Allergies Allergies Allergy/AdvReac Type Severity Reaction Status Date / Time No Known Drug Allergies Allergy Verified 12/11/20 13:52 History of Present Illness History of Present Illness: Ms. Diaz is a 60y/o female with chronic back pain with lumbar fracture, diabetes, , HTN, HLD, GERD and CHF presented after having a syncope episode at home. She states she was sitting outside and all of a sudden passed out and fell on the floor. She denies any dizziness, or nausea, or any Sx prior to the episode. She states she was doing fine. It lasted less than a min and she was back up. Patient states she had a similar episode a day prior and was able to get back up. She reports hurting her back slightly. She denies chest pain or SOB. In the ED, she was noted to be in atrial fibrillation with RVR, HR in 150s. She was given a dose of Diltiazem and started on PO metoprolol tartrate, HR has been in the 90-low 100s. Patient denies Sx. ED work-up - CXR: no acute process - CT-brain: no acute abnormalities - Labs: WBC: 10.7 BUN/Cr: 51/1.97 CK: 426 Trop x 3 (-) - COVID-19 positive (Patient has recovered from COVID in November) Patient reports having a hx of atrial fibrillation in the past, over 5-7 years ago and was on warfarin. She used to see Dr. Valenzuela and was told that she does not have it anymore and was taken off warfarin. Plan: will repeat BMP this morning to follow up on renal function. Continue metoprolol tartate 25 mg BID. Continue gentle hydration with NS. Wean O2 as tolerated. Will get carotid u/s due to syncope and also lumbar XR due to fall. PT/OT as tolerated. Will start Eliquis after morning labs. Resume home medications, hold lasix. Patient had echo in november with Grade 1 diastolic dysfunction. Patient was admitted in the ICU due to positive covid test but does not have any respiratory Sx. Patient's test result likely false positive or from prev infection. Past Medical History Past Medical History: CHF, Diabetes, Dyslipidemia and Hypertension Past Surgical History Surgical History: Cholecystectomy, Hysterectomy and Weight Loss Surgery Family History Family Medical History: Diabetes Mellitus and Hypertension Social History Alcohol Use: Rarely Drug Use: None Prescription drug monitoring program results: PDMP reviewed and no concerns identified Medications Home Medications: No Known Drug Allergies Allergy (Verified 12/11/20 13:52) CONTINUE taking the following medications famotidine 20 mg PO BID 02/12/21 [History] glipizide 5 mg PO BID 02/12/21 [History] lovastatin 20 mg PO DAILY 02/12/21 [History] montelukast 10 mg PO DAILY 02/12/21 [History] pantoprazole 40 mg PO DAILY 02/12/21 [History] Labs Result Diagrams: 02/13/21 04:26 02/13/21 04:26 Labs: 02/12/21 03:50 Foot - Right Wound Gram Stain - Final Laboratory WBC 11.5 X10^3/uL (3.6-10.0) H 02/12/21 04:58 RBC 4.50 X10^6/uL (3.5-5.4) 02/12/21 04:58 Hgb 11.8 g/dL (12.0-16.0) L 02/12/21 04:58 Hct 35.9 % (36.0-47.0) L 02/12/21 04:58 MCV 79.8 fL (80.0-100.0) L 02/12/21 04:58 MCH 26.2 pg (27.0-34.0) L 02/12/21 04:58 MCHC 32.8 g/dL (33.0-35.0) L 02/12/21 04:58 RDW 17.9 % (11.6-16.5) H 02/12/21 04:58 Plt Count 293 X10^3/uL (150.0-450.0) 02/12/21 04:58 MPV 8.2 fL (7.4-11.0) 02/12/21 04:58 Neut % (Auto) 67.1 % (42.0-75.0) 02/12/21 04:58 Lymph % (Auto) 24.5 % (21.0-51.0) 02/12/21 04:58 [place] % (Auto) 6.5 % (0.0-13.0) 02/12/21 04:58 Eos % (Auto) 1.2 % (0.9-2.9) 02/12/21 04:58 Baso % (Auto) 0.7 % (0.2-1.0) 02/12/21 04:58 Neut # (Auto) 7.7 x10^3/uL (2.2-4.8) H 02/12/21 04:58 Lymph # (Auto) 2.8 X10^3/uL (1.3-2.9) 02/12/21 04:58 [place] # (Auto) 0.7 x10^3/uL (0.3-0.8) 02/12/21 04:58 Eos # (Auto) 0.1 x10^3/uL (0.0-0.2) 02/12/21 04:58 Baso # (Auto) 0.1 X10^3/uL (0.0-0.1) 02/12/21 04:58 Absolute Nucleated RBC 0.1 /100WBC 02/12/21 04:58 PT 14.1 SECONDS (11.8-14.3) 02/12/21 04:58 INR Target Range - 02/12/21 04:58 INR 1.15 (0.8-1.3) 02/12/21 04:58 Sodium 141 mmol/L (136-145) 02/12/21 08:28 Corrected Sodium 142 mmol/L (136-145) 02/12/21 08:28 Potassium 4.4 mmol/L (3.5-5.1) 02/12/21 08:28 Chloride 105 mmol/L (98-107) 02/12/21 08:28 Carbon Dioxide 29.3 mmol/L (21-32) 02/12/21 08:28 BUN 47 mg/dL (7-18) H 02/12/21 08:28 Creatinine 1.54 mg/dL (0.55-1.02) H 02/12/21 08:28 Est GFR (MDRD) Af Amer 44 (>60) L 02/12/21 08:28 Est GFR (MDRD) Non-Af 36 (>60) L 02/12/21 08:28 Glucose 136 mg/dL (65-99) H 02/12/21 08:28 POC Glucose (mg/dL) 152 mg/dL (65-99) H 02/12/21 11:19 Calcium 8.4 mg/dL (8.5-10.1) L 02/12/21 08:28 Corrected Calcium 9.1 mg/dL (8.5-10.1) 02/11/21 22:01 Total Bilirubin 0.60 mg/dL (0.2-1.0) 02/11/21 22:01 AST 24 Units/L (15-37) 02/11/21 22:01 ALT 24 Units/L (12-78) 02/11/21 22:01 Alkaline Phosphatase 128 Units/L (46-116) H 02/11/21 22:01 Creatine Kinase 306 Units/L (26-192) H 02/12/21 04:58 CK-MB (CK-2) 2.3 ng/mL (0-4.0) 02/12/21 04:58 CK/CKMB % Calc 0.8 % (<4) 02/12/21 04:58 Troponin I < 0.02 ng/mL (0-1.5) 02/12/21 04:58 Total Protein 6.7 g/dL (6.4-8.2) 02/11/21 22:01 Albumin 3.2 g/dL (3.4-5.0) L 02/11/21 22:01 Globulin 3.5 g/dL (2.5-4.5) 02/11/21 22:01 Albumin/Globulin Ratio 0.9 Ratio (1.1-2.1) L 02/11/21 22:01 Triglycerides 124 mg/dL (0-150) 02/12/21 04:58 Cholesterol 186 mg/dL (0-200) 02/12/21 04:58 LDL Cholesterol, Calc 125 mg/dL (0-100) H 02/12/21 04:58 HDL Cholesterol 36 mg/dL (40-60) L 02/12/21 04:58 Cholesterol/HDL Ratio 5.2 (0.0-5.0) H 02/12/21 04:58 Specimen Type Clean catch urine 02/12/21 09:14 Urine Color Yellow (YELLOW) 02/12/21 09:14 Urine Appearance Clear (CLEAR) 02/12/21 09:14 Urine pH 5.0 (5.0 - 8.0) 02/12/21 09:14 Ur Specific [place] 1.020 (1.000-1.030) 02/12/21 09:14 Urine Protein Negative (NEGATIVE) 02/12/21 09:14 Urine Glucose (UA) Negative (NEGATIVE) 02/12/21 09:14 Urine Ketones Negative (NEGATIVE) 02/12/21 09:14 Urine Occult Blood 2+ (NEGATIVE) 02/12/21 09:14 Urine Nitrite Negative (NEGATIVE) 02/12/21 09:14 Urine Bilirubin Negative (NEGATIVE) 02/12/21 09:14 Urine Urobilinogen Normal (NORMAL) 02/12/21 09:14 Ur Leukocyte Esterase Negative (NEGATIVE) 02/12/21 09:14 Urine RBC 5-10 /HPF (0-3) A 02/12/21 09:14 Urine WBC 3-5 /HPF (0-5) 02/12/21 09:14 Ur Squamous Epith Cells Few /HPF (NEGATIVE) 02/12/21 09:14 Amorphous Sediment 1+ /HPF (NEGATIVE) 02/12/21 09:14 Urine Bacteria 1+ /HPF (NEGATIVE) 02/12/21 09:14 Urine Yeast Moderate /HPF (NEGATIVE) 02/12/21 09:14 Ur Culture Indicated? Yes/culture set up 02/12/21 09:14 SARS CoV-[address] Positive (NEGATIVE) A 02/12/21 00:23 Review of Systems Constitutional: No Symptoms Reported Eyes: No Symptoms Reported ENT: No Symptoms Reported Respiratory: No Symptoms Reported Cardiovascular: No Symptoms Reported Gastrointestinal: No Symptoms Reported Genitourinary: No Symptoms Reported Musculoskeletal: Back Pain Skin: Lesions (right foot callous ) Neurological: Other (syncope ) Physical Exam Vital Signs: Temperature 97.7 F Pulse Rate [Apical] 78 Pulse Rate 95 Respiratory Rate 20 Blood Pressure [Right Arm] 107/70 Blood Pressure 102/52 O2 Sat by Pulse Oximetry 99 Oriented: Normal Eyes: Normal Ear: Normal Nose: Normal Throat: Normal Respiratory: Clear Throughout Cardiovascular: Normal Auscultation: Bowel Sounds: Normal Palpation: Normal Tenderness: Normal Skin: Wound (right foot callous, open ulcer with mild drainage ) Musculoskeletal: Back:Thoracic, Back:Lumbar and Back:Paraspinous Psychiatric: Normal Mood Description: Calm and Appropriate Affect: Normal Speech Pattern: Clear and Appropriate Assessment/Plan (1) Syncope: Qualifiers: Syncope type: unspecified Qualified Code(s): R55 - Syncope and collapse Status: Acute (2) Atrial fibrillation with RVR: Status: Acute (3) Hyperkalemia: Status: Acute (4) CLARISSA (acute kidney injury): Status: Acute (5) Diabetes: Qualifiers: Diabetes mellitus complication status: with hyperglycemia Diabetes mellitus senior living insulin use: without terminal operator use Diabetes mellitus type: type 2 Qualified Code(s): E11.65 - Type 2 diabetes mellitus with hyperglycemia Status: Chronic (6) DDD (degenerative disc disease): Qualifiers: Spinal region: lumbosacral Qualified Code(s): M51.37 - Other intervertebral disc degeneration, lumbosacral region Status: Chronic (7) HTN (hypertension): Qualifiers: Hypertension type: essential hypertension Qualified Code(s): I10 - Essential (primary) hypertension Status: Chronic (8) Fall: Status: Acute Review H&P Reviewed: Yes Patient was examined?: Yes
[2021-02-12] MEDS ORDERED: SNACK - Diabetic Appropriate PO SCH (20:00)
[2021-02-12] MEDS ORDERED: ZOCOR TAB 10 MG PO SCH (21:00)
[2021-02-13] MEDS: NS 1000 ML 1,000 ML IV SCH (04:07)
[2021-02-13] MEDS: NEURONTIN CAP 400 MG PO SCH (05:14)
[2021-02-13 05:20] LABS: BASOPHILS # (AUTO) 0.1 X10^3/uL (0.0-0.1); BASOPHILS % (AUTO) 0.9 % (0.2-1.0); EOSINOPHILS # (AUTO) 0.2 x10^3/uL (0.0-0.2); EOSINOPHILS % (AUTO) 2.5 % (0.9-2.9); HEMATOCRIT 35.8 % (36.0-47.0); HEMOGLOBIN 11.8 g/dL (12.0-16.0); LYMPHOCYTES # (AUTO) 3.5 X10^3/uL (1.3-2.9); LYMPHOCYTES % (AUTO) 35.9 % (21.0-51.0); MEAN CORPUSCULAR HEMOGLOBIN 26.6 pg (27.0-34.0); MEAN CORPUSCULAR HGB CONC 32.9 g/dL (33.0-35.0); MEAN CORPUSCULAR VOLUME 80.7 fL (80.0-100.0); MEAN PLATELET VOLUME 8.4 fL (7.4-11.0); MONOCYTES # (AUTO) 0.6 x10^3/uL (0.3-0.8); MONOCYTES % (AUTO) 6.6 % (0.0-13.0); NEUTROPHILS # (AUTO) 5.3 x10^3/uL (2.2-4.8); NEUTROPHILS % (AUTO) 54.1 % (42.0-75.0); PLATELET COUNT 292 X10^3/uL (150.0-450.0); RED BLOOD COUNT 4.44 X10^6/uL (3.5-5.4); WHITE BLOOD COUNT 9.8 X10^3/uL (3.6-10.0)
[2021-02-13 05:29] LABS: CALCIUM 8.2 mg/dL (8.5-10.1); CARBON DIOXIDE 27.3 mmol/L (21-32); CREATININE 1.48 mg/dL (0.55-1.02)
[2021-02-13] MEDS ORDERED: ZESTRIL TAB 20 MG ONE (07:35)
[2021-02-13] MEDS ORDERED: DIFLUCAN PO ONE (08:01)
[2021-02-13] MEDS: ZYLOPRIM PO SCH (08:38)
[2021-02-13] MEDS: EFFEXOR XR 150 MG CAP 24-HR PO SCH (08:38)
[2021-02-13] MEDS: ELIQUIS PO SCH (08:38)
[2021-02-13] MEDS: ZESTRIL TAB 20 MG PO SCH (08:39)
[2021-02-13] MEDS: PEPCID TAB 20 MG PO SCH (08:39)
[2021-02-13] MEDS: ROCEPHIN VIAL 1 GRAM 1 G in NS 100 ML IV + SPIKE MINIBAG* 100 ML IV SCH (08:41)
[2021-02-13] MEDS: LOPRESSOR TAB 50 MG PO SCH (08:41)
--- NOTE | 2021-02-13 09:35 | W.DIS.FURT ---
Summary of Discharge Admission Diagnosis Patient Problems (Updated 02/13/21 @ 09:08 by Aster Paul) Syncope (Acute) R55 Atrial fibrillation with RVR (Acute) I48.91 Vital Signs: Vital Signs (72 hours) 02/11/21 21:26 02/11/21 21:30 02/11/21 21:52 Temperature 98.8 F Pulse Rate 152 H 142 H Pulse Rate [Apical] 150 H Respiratory Rate 18 20 18 Blood Pressure 135/59 Blood Pressure [Right Arm] 135/59 O2 Sat by Pulse Oximetry 98 99 95 02/11/21 21:56 02/11/21 22:00 02/11/21 22:26 Temperature Pulse Rate 146 H 144 H Pulse Rate [Apical] 145 H Respiratory Rate 20 14 16 Blood Pressure 114/52 Blood Pressure [Right Arm] 130/90 O2 Sat by Pulse Oximetry 97 94 L 97 02/11/21 23:26 02/12/21 00:00 02/12/21 00:26 Temperature 98.0 F Pulse Rate 92 H Pulse Rate [Apical] 128 H 99 H Respiratory Rate 18 17 Blood Pressure 102/52 Blood Pressure [Right Arm] 105/64 115/74 O2 Sat by Pulse Oximetry 95 97 02/12/21 01:26 02/12/21 02:05 02/12/21 02:20 Temperature 97.7 F Pulse Rate 95 H Pulse Rate [Apical] 94 H 105 H Respiratory Rate 16 Blood Pressure Blood Pressure [Right Arm] 109/55 103/63 O2 Sat by Pulse Oximetry 99 97 02/12/21 03:00 02/12/21 03:27 02/12/21 03:34 Temperature Pulse Rate Pulse Rate [Apical] 97 H Respiratory Rate 14 20 Blood Pressure Blood Pressure [Right Arm] 98/60 105/65 O2 Sat by Pulse Oximetry 100 02/12/21 04:00 02/12/21 04:27 02/12/21 05:00 Temperature Pulse Rate Pulse Rate [Apical] 93 H 90 Respiratory Rate 16 20 14 Blood Pressure Blood Pressure [Right Arm] 119/67 110/74 O2 Sat by Pulse Oximetry 100 99 02/12/21 08:00 02/12/21 12:00 02/12/21 16:00 Temperature 98.4 F 97.7 F 97.7 F Pulse Rate Pulse Rate [Apical] 92 H 78 85 Respiratory Rate 15 20 21 Blood Pressure Blood Pressure [Right Arm] 114/71 107/70 106/60 O2 Sat by Pulse Oximetry 100 99 99 02/12/21 19:00 02/12/21 19:30 02/12/21 20:00 Temperature 98.8 F Pulse Rate Pulse Rate [Apical] 78 74 Respiratory Rate 19 19 22 Blood Pressure Blood Pressure [Right Arm] 120/66 111/64 O2 Sat by Pulse Oximetry 95 97 02/12/21 20:30 02/12/21 21:00 02/12/21 22:00 Temperature Pulse Rate Pulse Rate [Apical] 78 82 Respiratory Rate 19 19 22 Blood Pressure Blood Pressure [Right Arm] 111/64 115/64 O2 Sat by Pulse Oximetry 96 96 02/12/21 23:00 02/13/21 00:00 02/13/21 04:00 Temperature 98.3 F 97.5 F L Pulse Rate Pulse Rate [Apical] 83 74 77 Respiratory Rate 18 20 14 Blood Pressure Blood Pressure [Right Arm] 106/63 112/69 108/76 O2 Sat by Pulse Oximetry 100 93 L 95 Labs: Laboratory Last Values WBC 9.8 X10^3/uL (3.6-10.0) 02/13/21 04:26 RBC 4.44 X10^6/uL (3.5-5.4) 02/13/21 04:26 Hgb 11.8 g/dL (12.0-16.0) L 02/13/21 04:26 Hct 35.8 % (36.0-47.0) L 02/13/21 04:26 MCV 80.7 fL (80.0-100.0) 02/13/21 04:26 MCH 26.6 pg (27.0-34.0) L 02/13/21 04:26 MCHC 32.9 g/dL (33.0-35.0) L 02/13/21 04:26 RDW 18.0 % (11.6-16.5) H 02/13/21 04:26 Plt Count 292 X10^3/uL (150.0-450.0) 02/13/21 04:26 MPV 8.4 fL (7.4-11.0) 02/13/21 04:26 Neut % (Auto) 54.1 % (42.0-75.0) 02/13/21 04:26 Lymph % (Auto) 35.9 % (21.0-51.0) 02/13/21 04:26 [place] % (Auto) 6.6 % (0.0-13.0) 02/13/21 04:26 Eos % (Auto) 2.5 % (0.9-2.9) 02/13/21 04:26 Baso % (Auto) 0.9 % (0.2-1.0) 02/13/21 04:26 Neut # (Auto) 5.3 x10^3/uL (2.2-4.8) H 02/13/21 04:26 Lymph # (Auto) 3.5 X10^3/uL (1.3-2.9) H 02/13/21 04:26 [place] # (Auto) 0.6 x10^3/uL (0.3-0.8) 02/13/21 04:26 Eos # (Auto) 0.2 x10^3/uL (0.0-0.2) 02/13/21 04:26 Baso # (Auto) 0.1 X10^3/uL (0.0-0.1) 02/13/21 04:26 Absolute Nucleated RBC 0.0 /100WBC 02/13/21 04:26 PT 14.1 SECONDS (11.8-14.3) 02/12/21 04:58 INR Target Range - 02/12/21 04:58 INR 1.15 (0.8-1.3) 02/12/21 04:58 Sodium 141 mmol/L (136-145) 02/13/21 04:26 Corrected Sodium 142 mmol/L (136-145) 02/13/21 04:26 Potassium 5.0 mmol/L (3.5-5.1) 02/13/21 04:26 Chloride 106 mmol/L (98-107) 02/13/21 04:26 Carbon Dioxide 27.3 mmol/L (21-32) 02/13/21 04:26 BUN 44 mg/dL (7-18) H 02/13/21 04:26 Creatinine 1.48 mg/dL (0.55-1.02) H 02/13/21 04:26 Est GFR (MDRD) Af Amer 46 (>60) L 02/13/21 04:26 Est GFR (MDRD) Non-Af 38 (>60) L 02/13/21 04:26 Glucose 147 mg/dL (65-99) H 02/13/21 04:26 POC Glucose (mg/dL) 140 mg/dL (65-99) H 02/13/21 05:12 Calcium 8.2 mg/dL (8.5-10.1) L 02/13/21 04:26 Corrected Calcium 9.1 mg/dL (8.5-10.1) 02/11/21 22:01 Total Bilirubin 0.60 mg/dL (0.2-1.0) 02/11/21 22:01 AST 24 Units/L (15-37) 02/11/21 22:01 ALT 24 Units/L (12-78) 02/11/21 22:01 Alkaline Phosphatase 128 Units/L (46-116) H 02/11/21 22:01 Creatine Kinase 157 Units/L (26-192) 02/13/21 04:26 CK-MB (CK-2) 2.3 ng/mL (0-4.0) 02/12/21 04:58 CK/CKMB % Calc 0.8 % (<4) 02/12/21 04:58 Troponin I < 0.02 ng/mL (0-1.5) 02/12/21 04:58 Total Protein 6.7 g/dL (6.4-8.2) 02/11/21 22:01 Albumin 3.2 g/dL (3.4-5.0) L 02/11/21 22:01 Globulin 3.5 g/dL (2.5-4.5) 02/11/21 22:01 Albumin/Globulin Ratio 0.9 Ratio (1.1-2.1) L 02/11/21 22:01 Triglycerides 124 mg/dL (0-150) 02/12/21 04:58 Cholesterol 186 mg/dL (0-200) 02/12/21 04:58 LDL Cholesterol, Calc 125 mg/dL (0-100) H 02/12/21 04:58 HDL Cholesterol 36 mg/dL (40-60) L 02/12/21 04:58 Cholesterol/HDL Ratio 5.2 (0.0-5.0) H 02/12/21 04:58 Specimen Type Clean catch urine 02/12/21 09:14 Urine Color Yellow (YELLOW) 02/12/21 09:14 Urine Appearance Clear (CLEAR) 02/12/21 09:14 Urine pH 5.0 (5.0 - 8.0) 02/12/21 09:14 Ur Specific [place] 1.020 (1.000-1.030) 02/12/21 09:14 Urine Protein Negative (NEGATIVE) 02/12/21 09:14 Urine Glucose (UA) Negative (NEGATIVE) 02/12/21 09:14 Urine Ketones Negative (NEGATIVE) 02/12/21 09:14 Urine Occult Blood 2+ (NEGATIVE) 02/12/21 09:14 Urine Nitrite Negative (NEGATIVE) 02/12/21 09:14 Urine Bilirubin Negative (NEGATIVE) 02/12/21 09:14 Urine Urobilinogen Normal (NORMAL) 02/12/21 09:14 Ur Leukocyte Esterase Negative (NEGATIVE) 02/12/21 09:14 Urine RBC 5-10 /HPF (0-3) A 02/12/21 09:14 Urine WBC 3-5 /HPF (0-5) 02/12/21 09:14 Ur Squamous Epith Cells Few /HPF (NEGATIVE) 02/12/21 09:14 Amorphous Sediment 1+ /HPF (NEGATIVE) 02/12/21 09:14 Urine Bacteria 1+ /HPF (NEGATIVE) 02/12/21 09:14 Urine Yeast Moderate /HPF (NEGATIVE) 02/12/21 09:14 Ur Culture Indicated? Yes/culture set up 02/12/21 09:14 SARS CoV-[address] Positive (NEGATIVE) A 02/12/21 00:23 Reason For Visit: afib with rvr,syncope Discharge Diagnosis All Active Problems (Updated 02/13/21 @ 09:08 by Aster Paul) CLARISSA (acute kidney injury) (Acute) Fall (Acute) Syncope (Acute) Atrial fibrillation with RVR (Acute) Hyperkalemia (Acute) Diabetes (Chronic) DDD (degenerative disc disease) (Chronic) HTN (hypertension) (Chronic) Acute respiratory failure with hypoxia (Acute) Bilateral pleural effusion (Acute) Nondisplaced fracture of left humerus (Chronic) Pneumonia due to COVID-19 virus (Acute) Left humeral fracture (Chronic) Plan of Treatment: Continue with present treatment and follow up plan. Pt is to keep follow up appointment as instructed and take medications as ordered. Discharge Medications Discharge Medications: No Known Drug Allergies Allergy (Verified 12/11/20 13:52) CONTINUE taking the following medications famotidine 20 mg PO BID 02/12/21 [History] glipizide 5 mg PO BID 02/12/21 [History] lovastatin 20 mg PO DAILY 02/12/21 [History] montelukast 10 mg PO DAILY 02/12/21 [History] pantoprazole 40 mg PO DAILY 02/12/21 [History] New Prescriptions apixaban [Eliquis] 5 mg PO BID 30 Days #60 tab 02/13/21 [Rx] cephalexin 500 mg PO BID 5 Days #10 cap 02/13/21 [Rx] metoprolol tartrate 25 mg PO BID 30 Days #60 tab 02/13/21 [Rx] Discharge Plan Discharge Plan Condition: Stable Health Concerns: Post Hospitalization: new medications and changes needed to prevent readmission or further decline. Pt educated and given instructions on all concerns. Plan of Treatment: Continue with present treatment and follow up plan. Pt is to keep follow up appointment as instructed and take medications as ordered. Prescriptions: New Eliquis 5 mg Tablet 5 mg PO BID 30 Days Qty: 60 RF: 1 metoprolol tartrate 25 mg tablet 25 mg PO BID 30 Days Qty: 60 RF: 0 cephalexin 500 mg capsule 500 mg PO BID 5 Days Qty: 10 RF: 0 Continued gabapentin 800 mg tablet 800 mg PO TID RF: 0 venlafaxine 150 mg capsule,extended release 24hr 150 mg PO DAILY RF: 0 tramadol 50 mg tablet 50 mg PO QID PRN (Reason: Pain) RF: 0 trazodone 100 mg tablet 100 mg PO HS RF: 0 allopurinol 100 mg tablet 100 mg PO BID RF: 0 ipratropium-albuterol 0.5 mg-3 mg(2.5 mg base)/3 mL Solution For Nebulization 3 ml NEB QID 7 Days Qty: 30 RF: 1 lisinopril 20 mg Tablet 20 mg PO DAILY 30 Days Qty: 30 RF: 1 albuterol sulfate 90 mcg/actuation HFA aerosol inhaler 2 puff inhalation Q4-6H PRNQty: 6.7 RF: 1 famotidine 20 mg tablet 20 mg PO BID RF: 0 pantoprazole 40 mg tablet,delayed release (DR/EC) 40 mg PO DAILY RF: 0 montelukast 10 mg tablet 10 mg PO DAILY RF: 0 lovastatin 20 mg tablet 20 mg PO DAILY RF: 0 glipizide 5 mg tablet 5 mg PO BID RF: 0 Discontinued furosemide 40 mg tablet 40 mg PO DAILY RF: 0 celecoxib 200 mg capsule 200 mg PO BID RF: 0 Follow ups/Referrals Follow ups/Referrals: Aster Paul [Primary Care Provider] - 1 WEEK Instructions Activity Restrictions/Additional Instructions: Follow up with Cardiology Dr. Valenzuela as scheduled Restart Lasix after 3 days Stop Celecoxib Monitor blood pressure daily and weight daily
[2021-02-13 10:09] VITALS: BP 102/52
== END 2021-02-13 12:00 | disposition home or self-care (01) ==
LOC: ER 21:26 → ICU 21:26
PROVIDERS: ADMIT Internal Medicine; ATTEND Internal Medicine
DX: E11.65 Type 2 diabetes mellitus with hyperglycemia; U07.1 COVID-19; M51.37 Other intervertebral disc degeneration, lumbosacral region; K21.9 Gastro-esophageal reflux disease without esophagitis; N17.8 Other acute kidney failure; R55 Syncope and collapse; Z79.01 Long term (current) use of anticoagulants; I48.91 Unspecified atrial fibrillation; W18.39XA Other fall on same level, initial encounter; Z86.16 Personal history of COVID-19; E87.5 Hyperkalemia; I10 Essential (primary) hypertension; R94.31 Abnormal electrocardiogram [ECG] [EKG]